=== PATIENT | male | born 1935 | race Caucasian/White ===

== ENCOUNTER 2018-06-22 12:49 | Emergency (ER) | payer OTHER ==
[2018-06-22 13:35] VITALS: BP 134/75; PULSE 71; TEMP 97.4; BMI 25.7
--- NOTE | 2018-06-22 13:44 | PDOC ---
History of Present Illness - General Chief Complaint: Wound Stated Complaint: DRAINING FLUID ON LEG S/P SURG Time Seen by Provider: 06/22/18 12:56 - History of Present Illness Initial Comments: 06/22/18 14:34 Chief complaint: Wound drainage History of present illness: Patient had CABG approximately 2 weeks ago, discharged from [facility] on Sunday, small amount of clear drainage continues from wounds on his leg and chest. Visiting nurse today was concerned about infection, encourage the patient to be seen in the emergency room. He has not and seen by his primary physician or his surgeon. Review of systems: Denies fever/chills, body aches, swelling, redness, warmth, or pain at the sites of the wounds. States that the drainage is clear fluid without discoloration or other suggestion of pus. Past medical history: PR, coronary artery disease, recent CABG, Social/family history reviewed and noncontributory Physical exam: Alert and oriented well-developed well-nourished no acute distress cheerful and cooperative Afebrile, vital signs normal Surgical wounds of his chest and left medial calf were inspected. Small amount of serosanguineous drainage was noted from each area. There was absolutely no erythema, warmth, swelling, or tenderness in the area of the wounds. There was some vesiculation around the suture lines and the weeping appeared to be coming from there. Impression: It is unlikely that this is an infection. The serosanguineous drainage and vesiculation is more consistent with an eczematous type reaction to the sutures or other chemical/antiseptics used during surgery. Plan: Wound cultures were taken. Patient was instructed that if signs of infection develop to return to the ER immediately, otherwise recheck by primary physician and surgeon, who can check culture results and prescribe antibiotics if they feel they are needed. We will ambulatory, in no pain or other distress upon discharge to follow-up as directed. Patient is in agreement to avoid antibiotics at this time. Past History - Past Medical History COPD: No - Suicide/Smoking/Psychosocial Hx Smoking History: Former smoker Have you smoked in the past 12 months: No Information on smoking cessation initiated: No Hx Alcohol Use: No Drug/Substance Use Hx: No *Physical Exam - Vital Signs Last Vital Signs Temp Pulse Resp BP Pulse Ox 97.4 F L 71 20 134/75 99 06/22/18 12:50 06/22/18 12:50 06/22/18 12:50 06/22/18 12:50 06/22/18 12:50 *DC/Admit/Observation/Transfer Diagnosis at time of Disposition: Wound drainage - Discharge Dispostion Disposition: HOME Condition at time of disposition: Stable Decision to Admit order: No - Referrals - Patient Instructions Printed Discharge Instructions: How to Care for a Surgical Wound Additional Instructions: Cultures were taken and results will be available in 12-24 hours It is unlikely that this is an infection. However, if other symptoms develop such as fever/chills, redness, warmth, or swelling around the wounds, this could be more evidence for infection and you should contact her doctor immediately or return to the emergency room. Wound care as discussed until then. If possible, see your surgeon and have him inspect the wound, because he is most experiened as to what to expect regarding surgical wounds after this type of surgery. - Post Discharge Activity
== END 2018-06-22 13:54 | disposition home or self-care (01) ==
LOC: FER 12:49
DX: T81.89XA Other complications of procedures, not elsewhere classified, initial encounter (principal); Y83.8 Other surgical procedures as the cause of abnormal reaction of the patient, or of later complication, without mention of misadventure at the time of the procedure; Y92.9 Unspecified place or not applicable; I10 Essential (primary) hypertension; I25.10 Atherosclerotic heart disease of native coronary artery without angina pectoris; Z87.891 Personal history of nicotine dependence; Z95.1 Presence of aortocoronary bypass graft
CPT/HCPCS: 87070; 87186; 87205; 99282-25

== ENCOUNTER 2018-07-28 10:19 | Emergency (ER) | payer OTHER | END 2018-07-28 14:06 | disposition home or self-care (01) | LOC: FER 10:19 ==

== ENCOUNTER 2018-08-06 13:53 | Inpatient (IN) | payer OTHER ==
--- NOTE | 2018-08-06 14:01 | PDOC ---
Rapid Medical Evaluation Chief Complaint: Redness To Affected Area Time Seen by Provider: 08/06/18 13:57 Medical Evaluation: Allergies Allergy/AdvReac Type Severity Reaction Status Date / Time ciprofloxacin [From Cipro] Allergy Verified 08/06/18 13:57 08/06/18 13:58 I have performed a brief in-person evaluation of this patient. The patient presents with a chief complaint of: sent for admission for LLE wound. Failed outpt Abx x2 Pertinent physical exam findings: LLe wound to medial aspect of mid lower leg I have ordered the following: labs, urine, ekg, cxr, CT The patient will proceed to the ED for further evaluation. Discharge Disposition - Diagnosis Cellulitis - Referrals - Patient Instructions - Post Discharge Activity
--- NOTE | 2018-08-06 14:26 | PDOC ---
History of Present Illness - General Chief Complaint: Redness To Affected Area Stated Complaint: SENT BY PCP\\LF LEG INFECTION Time Seen by Provider: 08/06/18 13:57 - History of Present Illness Initial Comments: 82yo M with PMH of HTN, HLD, Afib on Pradaxa and ASA presenting with LLE wound. Patient states he had a three-vessel cardiac bypass procedure on 06/11/18 and since that time the vessel graft area has not healed well. Patient had the vessel procedure on 06/11. He has noted serosanguinous drainage to the area. The wound improved but worsened and the patient was evaluated on 07/28/18 at [place] ED for worsening redness, swelling, and pain. Negative DVT study. Given Rocephin IV with improvement and keflex outpatient. Patient was re-evaluated by his physician on 08/02/18 who switched the antibiotics to amoxicillin as the patient was not improving. In consultation with his physician regarding no improvement today, patient was recommended for evaluation in the ED and admission for IV antibiotics for LLE infection with failed outpatient therapy. Patient reports fever of 102 on the night before he presented to [place] ED but not since. Endorsing chills and night sweats. No chest pain. PCP: Dr. Hyde Past History - Past Medical History Allergies/Adverse Reactions: Allergies Allergy/AdvReac Type Severity Reaction Status Date / Time ciprofloxacin [From Cipro] Allergy Verified 08/06/18 13:57 Home Medications: Ambulatory Orders Acetaminophen [Tylenol] 650 mg PO PRN PRN 07/28/18 Amiodarone HCl 400 mg PO BID 07/28/18 Aspirin [ASA -] 81 mg PO DAILY 07/28/18 Azelastine/Fluticasone [Dymista Nasal [place]] 23 gm NS PRN PRN 07/28/18 Cephalexin Monohydrate [Keflex] 500 mg PO Q6H #30 capsule 07/28/18 Dabigatran Etexilate Mesylate [Pradaxa -] 150 mg PO BID 07/28/18 Docusate Sodium 100 mg PO TID 07/28/18 Esomeprazole Magnesium 20 mg PO DAILY 07/28/18 Ezetimibe 10 mg PO DAILY 07/28/18 Finasteride 5 mg PO HS 07/28/18 Folic Acid 3 mg PO HS 07/28/18 Furosemide [Lasix] 20 mg PO DAILY 07/28/18 Rosuvastatin [Crestor -] 5 mg PO HS 07/28/18 Tamsulosin HCl [Flomax -] 0.4 mg PO BID 07/28/18 Cardiac Disorders: Yes (triple bypass) COPD: No HTN: Yes Other medical history: enlarged Prostate - Surgical History Cardiac Surgery: Yes (TRIPLE BYPASS) - Suicide/Smoking/Psychosocial Hx Smoking History: Former smoker Have you smoked in the past 12 months: No Information on smoking cessation initiated: No Hx Alcohol Use: No Drug/Substance Use Hx: No Review of Systems - Review of Systems Comments:: Constitutional: +fever, +chills HEENT: no throat pain, no dysphagia Cardiovascular: no chest pain, no palpitations Respiratory: no cough, no shortness of breath Gastrointestinal: no abdominal pain, no nausea Genitourinary: no dysuria, no frequency Musculoskeletal: no myalgia, no arthralgia Skin: +L. leg erythema, + L. leg edema Neurologic: no headache, +weakness *Physical Exam - Vital Signs Last Vital Signs Temp Pulse Resp BP Pulse Ox 97.5 F L 86 16 148/61 97 08/06/18 13:57 08/06/18 13:57 08/06/18 13:57 08/06/18 13:57 08/06/18 13:57 - Physical Exam Comments: General: Awake, alert, and fully oriented, in no acute distress Head: No signs of trauma Eyes: EOMI, sclera anicteric ENT: Moist mucus membranes Neck: Normal ROM, supple Lungs: Lungs clear, Normal breath sounds Cardio: Regular rhythm, S1 and S2 present Abdomen: Soft, nontender L. leg: area from calf to just below knee is erytematous and indurated, area of vessel graft on medial aspect of lower leg with mild serosanguinous drainage; R. leg: no acute abnormality; equal strength and sensation Extremities: Normal range of motion, Distal pulses present SKIN: Warm, Dry, normal turgor Neurologic: Cranial nerves II through XII grossly intact. Normal speech ED Treatment Course - LABORATORY CBC & Chemistry Diagram: 08/07/18 06:51 08/07/18 06:51 Medical Decision Making - Medical Decision Making 82yo M with PMH of HTN, HLD, Afib on Pradaxa and ASA presenting with LLE wound. Per message from Dr. Hyde: "Ongoing pain an dswelling of LLE with draining wound. Seen at [facility] on 07/27 --> Duplex negative for DVT. Has NOT responded to 2 separate po antibiotics and now needs inpatient admission for cellulitis. Please do all labs and CXR as well as CT of LLE and may need IV Rocephin. Labs, EKG, CXR 08/06/18 14:47 EKG: rate 68, QTc 504, atrial flutter, RBBB CBC WBC 10.8 K/mm3 (4.0-10.0) H 08/06/18 14:16 RBC 3.66 M/mm3 (4.00-5.60) L 08/06/18 14:16 Hgb 11.0 GM/dL (11.7-16.9) L 08/06/18 14:16 Hct 32.8 % (35.4-49) L 08/06/18 14:16 MCV 89.6 fl (80-96) 08/06/18 14:16 MCH 30.1 pg (25.7-33.7) 08/06/18 14:16 MCHC 33.6 g/dl (32.0-35.9) 08/06/18 14:16 RDW 15.4 % (11.9-15.9) 08/06/18 14:16 MPV 8.8 fl (7.5-11.1) 08/06/18 14:16 Absolute Neuts (auto) 8.2 K/mm3 (1.5-8.0) H 08/06/18 14:16 Neutrophils % 75.7 % (42.8-82.8) 08/06/18 14:16 Lymphocytes % 12.2 % (8-40) D 08/06/18 14:16 Monocytes % 6.6 % (3.8-10.2) 08/06/18 14:16 Eosinophils % 4.4 % (0-4.5) D 08/06/18 14:16 Basophils % 1.1 % (0-2.0) 08/06/18 14:16 Nucleated RBC % 0 % (0-0) 08/06/18 14:16 Mild leukocytosis WBC 10.8 CMP Sodium 140 mmol/L (136-145) 08/06/18 14:16 Potassium 4.5 mmol/L (3.5-5.1) 08/06/18 14:16 Chloride 106 mmol/L (98-107) 08/06/18 14:16 Carbon Dioxide 28 mmol/L (21-32) 08/06/18 14:16 Anion Gap 6 MMOL/L (8-16) L 08/06/18 14:16 BUN 16.1 mg/dL (7-18) 08/06/18 14:16 Creatinine 1.3 mg/dL (0.55-1.3) 08/06/18 14:16 Est GFR (CKD-EPI)AfAm 59.73 08/06/18 14:16 Est GFR (CKD-EPI)NonAf 51.53 08/06/18 14:16 Random Glucose 87 mg/dL (74-106) 08/06/18 14:16 Calcium 8.6 mg/dL (8.5-10.1) 08/06/18 14:16 Total Bilirubin 0.6 mg/dL (0.2-1) 08/06/18 14:16 AST 30 U/L (15-37) 08/06/18 14:16 ALT 21 U/L (13-61) 08/06/18 14:16 Alkaline Phosphatase 83 U/L (45-117) 08/06/18 14:16 Total Protein 7.5 g/dl (6.4-8.2) 08/06/18 14:16 Albumin 3.0 g/dl (3.4-5.0) L 08/06/18 14:16 Electrolytes WNL No transaminitis Normal Cr Vanc/Zosyn ordered 08/06/18 15:[address] Hyde who recommended 20mg Lasix. CT with IV contrast ordered for the left lower extremity 08/06/18 15:37 CXR: "A single view of the chest reveals a large heart, unfolded aorta, sternal sutures, normal tessa and clear lung gentile. The angles are sharp. The soft tissues are intact. There are some degenerative changes. Correlation recommended. " CT with evidence of abscess: "ADDENDUM ADDENDUM #1 Addendum: The previously described rim-enhancing ventral medial fluid collection measures approximately 15 x 3 x 1 cm. ORIGINAL REPORT * Left lower extremity CT (with contrast) Clinical information given: left lower extremity cellulitis and wound, evaluate for abscess Multiplanar imaging of the left lower leg was performed following the intravenous administration of nonionic contrast. No prior CT/MRI studies are available at this facility for direct comparison. Submitted exam coverage extends from the distal left femoral diametaphysis through the ankle/foot. An approximately 11 x 3 x 1 cm rim- enhancing ventral medial fluid collection is noted straddling the superficial fascia at the level of the middle third of the tibial diaphysis. Subcutaneous concentric subcutaneous edema is seen along the length of the visualized left lower extremity. No soft tissue air accumulation is noted. Hemostatic clips are seen within the soft tissues medially at the level of the upper and mid tibia. A small osteochondral defect is seen along the left talar dome medially. Calcified cartilage consistent with chondrocalcinosis is seen within the knee joints bilaterally - ? on a degenerative basis versus possible pyrophosphate arthropathy. Correlate clinically. Impression: A discrete rim-enhancing fluid collection suggestive of an abscess is seen along the ventral medial aspect of the left lower leg as discussed above." Updated Dr. Hyde who requested consult to [facility] Paged orthopedist 08/06/18 18:20 Patient signed out to Dr. Chaidez and night team *DC/Admit/Observation/Transfer Diagnosis at time of Disposition: Post-operative wound abscess Cellulitis Qualifiers: Site of cellulitis: extremity Site of cellulitis of extremity: lower extremity Laterality: left Qualified Code(s): L03.116 - Cellulitis of left lower limb - Discharge Dispostion Condition at time of disposition: Guarded Decision to Admit order: Yes - Referrals - Patient Instructions - Post Discharge Activity
[2018-08-06 14:45] LABS: BASO % 1.1 % (0-2.0); EOS % 4.4 % (0-4.5); HEMATOCRIT 32.8 % (35.4-49); LYMPH % 12.2 % (8-40); MCH 30.1 pg (25.7-33.7); MCHC 33.6 g/dl (32.0-35.9); MEAN CELL VOLUME 89.6 fl (80-96); MEAN PLT VOLUME 8.8 fl (7.5-11.1); MONO % 6.6 % (3.8-10.2); NEUT % 75.7 % (42.8-82.8); RBC 3.66 M/mm3 (4.00-5.60); RDW 15.4 % (11.9-15.9); WHITE BLOOD COUNT 10.8 K/mm3 (4.0-10.0)
[2018-08-06 15:17] LABS: URINE APPEARANCE CLEAR; URINE BILIRUBIN NEGATIVE (NEGATIVE); URINE COLOR YELLOW; URINE GLUCOSE (UA) NEGATIVE (NEGATIVE); URINE KETONE NEGATIVE (NEGATIVE); URINE LEUK ESTERASE NEGATIVE (NEGATIVE); URINE NITRITE NEGATIVE (NEGATIVE); URINE PROTEIN NEGATIVE (NEGATIVE); URINE UROBILINOGEN 0.2 mg/dL (0.2-1.0)
[2018-08-06 15:21] LABS: BILIRUBIN,TOTAL 0.6 mg/dL (0.2-1); BLOOD UREA NITROGEN 16.1 mg/dL (7-18); CALCIUM 8.6 mg/dL (8.5-10.1); CREATININE 1.3 mg/dL (0.55-1.3); POTASSIUM 4.5 mmol/L (3.5-5.1); TOT PROT 7.5 g/dl (6.4-8.2)
[2018-08-06] MEDS ORDERED: VANCOMYCIN 1,000 MG in DEXTROSE 5%-WATER - 250 ML IVPB ONE (15:27)
[2018-08-06] MEDS ORDERED: PIPERACILLIN/TAZOB 4.5 GM 4.5 GM in DEXTROSE 5%-WATER 100 ML IVPB ONE (15:27)
[2018-08-06] MEDS ORDERED: VANCOMYCIN 1 GRAM (PRE-DOCKED) 1,000 MG/250 ML BAG IVPB ONE (15:33)
[2018-08-06] MEDS ORDERED: PIPERACILLIN/TAZOB 3.375 GM 3.375 GM/50 ML BAG IVPB ONE ×2 (15:34→20:49)
[2018-08-06 15:38] LABS: ANISOCYTOSIS 0; MACROCYTOSIS 0; PLATELET ESTIMATE INCREASED
[2018-08-06 15:40] LABS: PLATELET COUNT 466 K/MM3 (134-434)
--- NOTE | 2018-08-06 17:00 | PDOC ---
Documentation entered by Elvia Wade SCRIBE, acting as scribe for Jeevan Puentes MD. Jeevan Puentes MD: This documentation has been prepared by the scribe, Elvia Wade SCRIBE, under my direction and personally reviewed by me in its entirety. I confirm that the documentation accurately reflects all work, treatment, procedures, and medical decision making performed by me. Attending Attestation - Resident Resident Name: Isabel Amezcua - ED Attending Attestation I have performed the following: I have examined & evaluated the patient, The case was reviewed & discussed with the resident, I agree w/resident's findings & plan, Exceptions are as noted - HPI HPI: 08/06/18 15:15 The patient is an 82-year-old male, with a past medical history of cardiac bypass (on 06/11/18) with nonhealing vessel graft area, who was sent to the ED by Dr. Hyde for a LLE wound with associated drainage and LLE swelling/ pain. Patient was seen in [place] ER on Friday 07/28 and had a duplex study performed that was negative for DVT in the LLE. He was prescribed a dose of ceftriaxone with no improvement in his symptoms. He was placed on outpatient Keflex with no improvement, so Dr. Hyde placed him on a course of amoxicillin. Patient has been on amoxicillin for a few days and his symptoms have not improved, so Dr. Hyde sent the patient in for admission for IV abx and CT LLE with IV contrast to r/o deep infection. Pt reports fever to 102 the day he presented to [facility] but no fevers since. Otherwsie, denies recent headache, focal weakness/numbness, CP, SOB, abd pain, N/V/D, dizziness. Allergies: Ciprofloxacin PCP: Dr. Hyde - Physicial Exam PE: 08/06/18 17:02 agree with resident exam - Medical Decision Making 08/06/18 17:02 82yo M presents to the ED with cellulitis that has failed outpt abx Vitals wnl Exam with cellulitic tender L calf with wound LLE WWP otherwise, NVI with pulses Plan for labs, broad spectrum abx, CT as per Dr. Post, and admission
[2018-08-06] MEDS ORDERED: FUROSEMIDE 100 MG/10 ML INJECTABLE VIAL IVPB ONE (19:15)
--- NOTE | 2018-08-06 19:59 | HP ---
Admitting History and Physical - Primary Care Physician PCP: Seth Hyde - Admission Chief Complaint: pain swelling of Lt Leg - Smoking History Smoking history: Former smoker Have you smoked in the past 12 months: No - Alcohol/Substance Use Hx Alcohol Use: No Home Medications - Allergies Allergies/Adverse Reactions: Allergies Allergy/AdvReac Type Severity Reaction Status Date / Time ciprofloxacin [From Cipro] Allergy Verified 08/06/18 13:57 - Home Medications Home Medications: Ambulatory Orders Acetaminophen [Tylenol] 650 mg PO PRN PRN 07/28/18 Amiodarone HCl 400 mg PO BID 07/28/18 Aspirin [ASA -] 81 mg PO DAILY 07/28/18 Azelastine/Fluticasone [Dymista Nasal [place]] 23 gm NS PRN PRN 07/28/18 Cephalexin Monohydrate [Keflex] 500 mg PO Q6H #30 capsule 07/28/18 Dabigatran Etexilate Mesylate [Pradaxa -] 150 mg PO BID 07/28/18 Docusate Sodium 100 mg PO TID 07/28/18 Esomeprazole Magnesium 20 mg PO DAILY 07/28/18 Ezetimibe 10 mg PO DAILY 07/28/18 Finasteride 5 mg PO HS 07/28/18 Folic Acid 3 mg PO HS 07/28/18 Furosemide [Lasix] 20 mg PO DAILY 07/28/18 Rosuvastatin [Crestor -] 5 mg PO HS 07/28/18 Tamsulosin HCl [Flomax -] 0.4 mg PO BID 07/28/18 Physical Examination Vital Signs: Vital Signs Temperature 97.5 F L 08/06/18 13:57 Pulse Rate 72 08/06/18 16:00 Respiratory Rate 20 08/06/18 16:00 Blood Pressure 136/84 08/06/18 16:00 O2 Sat by Pulse Oximetry (%) 98 08/06/18 16:00 Labs: CBC, BMP 08/06/18 14:16 08/06/18 14:16
[2018-08-06] MEDS ORDERED: HEPARIN NA (PORCINE) 5,000 UNITS/ML 1ML VIAL IVPUSH PRN ×2 (20:06)
[2018-08-06] MEDS ORDERED: FOLIC ACID 1 MG TABLET (FP) PO ONE (20:14)
[2018-08-06] MEDS: PIPERACILLIN/TAZOB 3.375 GM 3.375 GM in DEXTROSE 5%-WATER - 50 ML IVPB SCH (20:30)
[2018-08-06] MEDS ORDERED: FUROSEMIDE 40 MG/4 ML INJECTABLE VIAL ONE (20:49)
[2018-08-06] MEDS ORDERED: FOLIC ACID 1 MG TABLET (FP) ONE (20:52)
[2018-08-06] MEDS ORDERED: TAMSULOSIN HCL 0.4 MG CAP ONE (22:15)
[2018-08-06] MEDS: TAMSULOSIN HCL 0.4 MG CAP PO SCH (22:21)
[2018-08-07] MEDS: HEPARIN SOD,PORK IN 0.45% NACL 25,000 UNITS/500 ML INFUS.BAG IVPB SCH (02:17)
[2018-08-07] MEDS ORDERED: DEXTROSE 5%-WATER - 50 ML IVPB ONE ×2 (07:35→17:15)
[2018-08-07] MEDS ORDERED: PIPERACILLIN/TAZOBACTAM 3.375 GM VIAL IVPB ONE ×2 (07:35→17:15)
[2018-08-07] MEDS: ACETAMINOPHEN 325 MG TABLET (FP) PO PRN ×2 (07:40→17:19)
[2018-08-07] MEDS: PIPERACILLIN/TAZOB 3.375 GM 3.375 GM in DEXTROSE 5%-WATER - 50 ML IVPB SCH ×3 (07:54→17:18)
[2018-08-07 08:20] LABS: HEMATOCRIT 31.3 % (35.4-49); HEMOGLOBIN 10.5 GM/dL (11.7-16.9); MCH 29.7 pg (25.7-33.7); MCHC 33.4 g/dl (32.0-35.9); MEAN CELL VOLUME 89.2 fl (80-96); MEAN PLT VOLUME 7.8 fl (7.5-11.1); PLATELET COUNT 423 K/MM3 (134-434); RBC 3.51 M/mm3 (4.00-5.60); RDW 14.5 % (11.9-15.9); WHITE BLOOD COUNT 11.1 K/mm3 (4.0-10.0)
--- NOTE | 2018-08-07 08:52 | EKG ---
Test Reason : Blood Pressure : / mmHG Vent. Rate : 068 BPM Atrial Rate : 242 BPM P-R Int : 000 ms QRS Dur : 144 ms QT Int : 474 ms P-R-T Axes : 060 063 033 degrees QTc Int : 504 ms POOR DATA QUALITY, INTERPRETATION MAY BE ADVERSELY AFFECTED ATRIAL FLUTTER WITH VARIABLE A-V BLOCK RIGHT BUNDLE BRANCH BLOCK ABNORMAL ECG NO PREVIOUS ECGS AVAILABLE Confirmed by RILEY PADGETT, KAILEY ([id number]) on 08/07/2018 8:51:41 AM Referred By: Confirmed By:KAILEY LIN MD
[2018-08-07 09:24] LABS: BLOOD UREA NITROGEN 13.8 mg/dL (7-18); CALCIUM 8.7 mg/dL (8.5-10.1); CREATININE 1.4 mg/dL (0.55-1.3); POTASSIUM 3.5 mmol/L (3.5-5.1)
[2018-08-07] MEDS: VALSARTAN 80 MG TABLET (UD) PO SCH (09:53)
[2018-08-07] MEDS: FUROSEMIDE 40 MG/4 ML INJECTABLE VIAL IVPUSH SCH (09:59)
[2018-08-07] MEDS: PANTOPRAZOLE 40 MG TABLET (FP) PO SCH (09:59)
[2018-08-07] MEDS ORDERED: TAMSULOSIN HCL 0.4 MG CAP PO STA (10:27)
--- NOTE | 2018-08-07 10:45 | HP ---
Admitting History and Physical - Primary Care Physician PCP: Seth Hyde - Admission Chief Complaint: pain & swelling on the Lt lower leg History of Present Illness: 82 YO M with Hx of stable ASHD & ATflutter (who underwent CABG in mid May this year) whose surgery was complicated by post op leg edema and draining from the incision of the distal LLE where the vein graft was harvested. The wound continued to drain serous fluid and was cultured a week later and grew E. Fecalis; he was then seen by ID who advised topical TX. as he was not clinically ill. The drainage eventually stopped, and he became more active in the month of June. However, on 07/27/18, he developed abrupt onset of pain on the Lt calf, sweats, fever and the drainage resumed from the same spot. He presented to the ER and was pancultured then received IV Rocephin with some relief. His VS were stable and he was released on PO Keflex, which did not result in any improvement. The cultures were negative as was the duplex scan. He was seen by me on 08/02/18, his VS were stable and was afebrile; he opted to try a different Ab, to see if it might be more effective; Plain Xray of the LLE was negative as was the CKL. the ESR was 88; He was seen in f/u on 08/06/18; there was little change in the condition of the leg. He still had some malaise and sweats. History Source: Patient, Medical Record Limitations to Obtaining History: No Limitations - Past Medical History ALTERATIONS EXPERT: Yes: Migraine Cardiovascular: Yes: CAD, HTN, Hyperlipdemia, [place] (by enzymes only pre-OP), Other (atril flutter) Gastrointestinal: Yes: GERD, Other (colon polyps) Renal/: Yes: BPH Heme/Onc: Yes: Hypercoaguable State Musculoskeletal: Yes: Chronic low back pain Dermatology: Yes: Psoriasis - Past Surgical History Past Surgical History: Yes: CABG, Colonoscopy, TURP Additional Past Surgical History: repair of Lt achilles tendon tear - Advance Directives Advance Directives: Yes: Health Care Proxy - Smoking History Smoking history: Former smoker Have you smoked in the past 12 months: No If you are a former smoker, when did you quit?: about 15 years ago - Alcohol/Substance Use Hx Alcohol Use: No History of Substance Use: reports: None - Social History Usual Living Arrangement: Yes: With Spouse ADL: Independent 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 History of Recent Travel: Yes ([place]) Home Medications - Allergies Allergies/Adverse Reactions: Allergies Allergy/AdvReac Type Severity Reaction Status Date / Time ciprofloxacin [From Cipro] Allergy Verified 08/06/18 13:57 - Home Medications Home Medications: Ambulatory Orders Acetaminophen [Tylenol] 650 mg PO PRN PRN 07/28/18 Amiodarone HCl 400 mg PO BID 07/28/18 Aspirin [ASA -] 81 mg PO DAILY 07/28/18 Azelastine/Fluticasone [Dymista Nasal [place]] 23 gm NS PRN PRN 07/28/18 Cephalexin Monohydrate [Keflex] 500 mg PO Q6H #30 capsule 07/28/18 Dabigatran Etexilate Mesylate [Pradaxa -] 150 mg PO BID 07/28/18 Docusate Sodium 100 mg PO TID 07/28/18 Esomeprazole Magnesium 20 mg PO DAILY 07/28/18 Ezetimibe 10 mg PO DAILY 07/28/18 Finasteride 5 mg PO HS 07/28/18 Folic Acid 3 mg PO HS 07/28/18 Furosemide [Lasix] 20 mg PO DAILY 07/28/18 Rosuvastatin [Crestor -] 5 mg PO HS 07/28/18 Tamsulosin HCl [Flomax -] 0.4 mg PO BID 07/28/18 Family Disease History - Family Disease History Family Disease History: Heart Disease: Father, CA: Mother (colon) Review of Systems - Review of Systems Constitutional: reports: Chills, Diaphoresis, Lethargy Eyes: reports: No Symptoms HENT: reports: No Symptoms Neck: reports: No Symptoms Cardiovascular: reports: Palpitations Respiratory: reports: No Symptoms Gastrointestinal: reports: No Symptoms Genitourinary: reports: Frequency Musculoskeletal: reports: Extremity Pain Integumentary: reports: Change in Color (LLE) Neurological: reports: No Symptoms Endocrine: reports: No Symptoms Hematology/Lymphatic: reports: No Symptoms Psychiatric: reports: No Symptoms Physical Examination Vital Signs: Vital Signs Temperature 98.0 F 08/07/18 09:07 Pulse Rate 89 08/07/18 09:07 Respiratory Rate 18 08/07/18 09:07 Blood Pressure 120/69 08/07/18 09:07 O2 Sat by Pulse Oximetry (%) 96 08/06/18 22:24 skin--hyperemic LLE; with draining focus head--NC eyes--eomi; anicteric oral--no lesions appreciated neck--no masses, nodes, bruits heart--Irreg; rate NL lungs--grossly clear abd--benign ext--trace edema of the RLE; no ischemic changes hyperemeic exfoliating skin of the LLE; swollen & tender neuro--alert; coherent non ill appearing; no ghross focal deficits CBCD WBC 11.1 K/mm3 (4.0-10.0) H 08/07/18 06:51 RBC 3.51 M/mm3 (4.00-5.60) L 08/07/18 06:51 Hgb 10.5 GM/dL (11.7-16.9) L 08/07/18 06:51 Hct 31.3 % (35.4-49) L 08/07/18 06:51 MCV 89.2 fl (80-96) 08/07/18 06:51 MCHC 33.4 g/dl (32.0-35.9) 08/07/18 06:51 RDW 14.5 % (11.9-15.9) 08/07/18 06:51 Plt Count 423 K/MM3 (134-434) 08/07/18 06:51 MPV 7.8 fl (7.5-11.1) D 08/07/18 06:51 CMP Sodium 142 mmol/L (136-145) 08/07/18 06:51 Potassium 3.5 mmol/L (3.5-5.1) 08/07/18 06:51 Chloride 105 mmol/L (98-107) 08/07/18 06:51 Carbon Dioxide 28 mmol/L (21-32) 08/07/18 06:51 Anion Gap 8 MMOL/L (8-16) 08/07/18 06:51 BUN 13.8 mg/dL (7-18) 08/07/18 06:51 Creatinine 1.4 mg/dL (0.55-1.3) H 08/07/18 06:51 Random Glucose 87 mg/dL (74-106) 08/07/18 06:51 Calcium 8.7 mg/dL (8.5-10.1) 08/07/18 06:51 Total Bilirubin 0.6 mg/dL (0.2-1) 08/06/18 14:16 AST 30 U/L (15-37) 08/06/18 14:16 ALT 21 U/L (13-61) 08/06/18 14:16 Alkaline Phosphatase 83 U/L (45-117) 08/06/18 14:16 Total Protein 7.5 g/dl (6.4-8.2) 08/06/18 14:16 Albumin 3.0 g/dl (3.4-5.0) L 08/06/18 14:16 CARDIAC ENZYMES Creatine Kinase 78 U/L (26-308) 08/07/18 06:51 Labs: CBC, BMP 08/07/18 06:51 08/07/18 06:51 Imaging - Results Chest X-ray: Report Reviewed Cat Scan: Report Reviewed EKG: Report Reviewed Problem List - Problems (1) Post-operative wound abscess Assessment/Plan: of the LLE; seen by CT scan; has not responded with 2 separate courses of oral Abs as OP: PLAN surg eval; IV abs Code(s): T81.49XA - INFECTION FOLLOWING A PROCEDURE, OTHER SURGICAL SITE, INIT (2) S/P CABG x 3 Assessment/Plan: in the month of May; complicated by LLE non healing wound; and post OP atrial flutter Code(s): Z95.1 - PRESENCE OF AORTOCORONARY BYPASS GRAFT (3) Hypertensive heart disease Assessment/Plan: requiring BP control; and with underlying CAD; s/p post CABG Code(s): I11.9 - HYPERTENSIVE HEART DISEASE WITHOUT HEART FAILURE Qualifiers: Heart failure presence: without heart failure Qualified Code(s): I11.9 - Hypertensive heart disease without heart failure (4) Hypercoagulable state Assessment/Plan: heterzygous MTHF def; 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 Code(s): I48.92 - UNSPECIFIED ATRIAL FLUTTER (6) History of heart attack Assessment/Plan: by enzymes only; NSTEMI; which prompted admission pre-CABG Code(s): I25.2 - OLD MYOCARDIAL INFARCTION (7) Lipidemia Assessment/Plan: on statin Code(s): E78.5 - HYPERLIPIDEMIA, UNSPECIFIED Qualifiers: Hyperlipidemia type: unspecified Qualified Code(s): E78.5 - Hyperlipidemia , unspecified (8) BPH associated with nocturia Assessment/Plan: cont Flomax Code(s): N40.1 - BENIGN PROSTATIC HYPERPLASIA WITH LOWER URINARY TRACT SYMP; R35.1 - NOCTURIA (9) Migraine Assessment/Plan: stable Code(s): G43.909 - MIGRAINE, UNSP, NOT INTRACTABLE, WITHOUT STATUS MIGRAINOSUS Qualifiers: Migraine type: unspecified Intractability: not intractable (10) Long-term (current) use of anticoagulants, INR goal 2.0-3.0 Assessment/Plan: on Pradaxa as OP; changed to IV heparin Code(s): Z79.01 - CHIEF CUSTOMER OFFICER (CURRENT) USE OF ANTICOAGULANTS Assessment/Plan 82 YO Cardiac patient who presents with LLE abscess unresponsive to multiple Ab courses as OP now requiring surg eval/intervention. Managment of Co_morb as indicated above. ~~~~~~~~~~~~~~~~ Dr Post
[2018-08-07] MEDS ORDERED: DOCUSATE SODIUM 100 MG CAPSULE (FP) PO PRN (11:05)
[2018-08-07] MEDS: AMIODARONE HCL 200 MG TABLET (FP) PO SCH (11:05)
--- NOTE | 2018-08-07 11:40 | CONSULT ---
- Consultation REQUESTING PROVIDER: CONSULT REQUEST: We have been asked to surgically evaluate this patient for ( Left leg abscess). PCP:Seth Hyde HISTORY OF PRESENT ILLNESS: 82 y/o M w/ PMHx ASHD, aflutter, CAD s/p CABG ([facility] -Dr Phipps, 06/11/2018), h/o DVT on Pradaxa complicated by post op leg edema and draining from LLE vein graft harvest site now here with worsening pain and erythema. Per pt and EMR, wound never completely closed after surgery. Pt was seen in ER at [facility] on 06/22 after being sent in by [facility] for concern for infection. Wound cultures were taken which grew E. fecalis, abx were not prescribed at that time as the wound was felt to not be infected, pt was advised local wound care with Bacitracin. Pt reports drainage stopped and he did well throughout June. However, in the beginning of July, he noted a new blister on his medial calf which opened and began draining. Pt was seen in ER again on 07/28 after developing erythema, edema and pain. Dr Hernández was consulted for evaluation, pt was pancultured and received a dose of Rocephin 2g and Cephalexin was continued for 1 week. Pt reports no improvement on abx. Cultures from ER visit were negative. Pt was seen by PCP on 08/02 at which time abx were changed to Amoxicillin and plain xray was done and wnl. Pt was referred to ER for further evaluation and trtmt. Pt reports fever to 102 on 07/28, no fevers since. Denies CP, SOB, abd pain, N/ V/D, dizziness. At baseline pt lives home with who he states is disabled. Pt reports being is "good shape", played tennis frequently prior to MT. Currently able to ambulate unlimited without assistance. PMHx: as above PSHx: as above Home Medications Medication Instructions Recorded Acetaminophen [Tylenol] 650 mg PO PRN PRN 07/28/18 Amiodarone HCl 400 mg PO BID 07/28/18 Aspirin [ASA -] 81 mg PO DAILY 07/28/18 Azelastine/Fluticasone [Dymista 23 gm NS PRN PRN 07/28/18 Nasal [place]] Cephalexin Monohydrate [Keflex] 500 mg PO Q6H #30 capsule 07/28/18 Dabigatran Etexilate Mesylate 150 mg PO BID 07/28/18 [Pradaxa -] Docusate Sodium 100 mg PO TID 07/28/18 Esomeprazole Magnesium 20 mg PO DAILY 07/28/18 Ezetimibe 10 mg PO DAILY 07/28/18 Finasteride 5 mg PO HS 07/28/18 Folic Acid 3 mg PO HS 07/28/18 Furosemide [Lasix] 20 mg PO DAILY 07/28/18 Rosuvastatin [Crestor -] 5 mg PO HS 07/28/18 Tamsulosin HCl [Flomax -] 0.4 mg PO BID 07/28/18 Allergies Allergy/AdvReac Type Severity Reaction Status Date / Time ciprofloxacin [From Cipro] Allergy Verified 08/06/18 13:57 REVIEW OF SYSTEMS: CONSTITUTIONAL: Absent: fever, chills CARDIOVASCULAR: Absent: chest pain, syncope RESPIRATORY: Absent: cough, shortness of breath GASTROINTESTINAL: Absent: abdominal pain PHYSICAL EXAM: GENERAL: Awake, alert, and fully oriented, in no acute distress. HEAD: Normal with no signs of trauma. LOWER EXTREMITIES: RLE with no edema, erythema or wounds. LLE with 2+ pitting edema to mid calf. + erythema from ankle to tibial tuberosity. Approx 2x2cm open ulcer at medial distal calf. Wound bed with fibrinous exudate and scant serous drainage. No foul odor. Unable to express any significant fluid from ulcer. Unable to appreciate any areas of fluctance. +TTP. No other open ulcers. Vasc: LLE 2+ dp/ Vital Signs Temperature 98.0 F 08/07/18 09:07 Pulse Rate 89 08/07/18 09:07 Respiratory Rate 18 08/07/18 09:07 Blood Pressure 120/69 08/07/18 09:07 O2 Sat by Pulse Oximetry (%) 96 08/06/18 22:24 Lab Results WBC 11.1 K/mm3 (4.0-10.0) H 08/07/18 06:51 RBC 3.51 M/mm3 (4.00-5.60) L 08/07/18 06:51 Hgb 10.5 GM/dL (11.7-16.9) L 08/07/18 06:51 Hct 31.3 % (35.4-49) L 08/07/18 06:51 MCV 89.2 fl (80-96) 08/07/18 06:51 MCHC 33.4 g/dl (32.0-35.9) 08/07/18 06:51 RDW 14.5 % (11.9-15.9) 08/07/18 06:51 Plt Count 423 K/MM3 (134-434) 08/07/18 06:51 Sodium 142 mmol/L (136-145) 08/07/18 06:51 Potassium 3.5 mmol/L (3.5-5.1) 08/07/18 06:51 Chloride 105 mmol/L (98-107) 08/07/18 06:51 Carbon Dioxide 28 mmol/L (21-32) 08/07/18 06:51 Anion Gap 8 MMOL/L (8-16) 08/07/18 06:51 BUN 13.8 mg/dL (7-18) 08/07/18 06:51 Creatinine 1.4 mg/dL (0.55-1.3) H 08/07/18 06:51 Random Glucose 87 mg/dL (74-106) 08/07/18 06:51 Calcium 8.7 mg/dL (8.5-10.1) 08/07/18 06:51 CT lower ext w/ contrast (08/06/18): The previously described rim-enhancing ventral medial fluid collection measures approximately [id number]. A/P: 82 y/o M w/ PMHx ASHD, aflutter, CAD s/p CABG ([facility]-Dr Phipps, 2018), h/o DVT on Pradaxa complicated by post op leg edema and draining from LLE vein graft harvest site now here with worsening pain and erythema. LLE cellulitis with open draining wound and abscess. Afebrile, leukocytosis 11k -Plan for OR 08/08 for I&D -Continue wound care with dry 4x4s and kerlix -ABX per ID -NPO after midnight -Clearance for OR -LABS (cbc, chem, coags, t&s) -f/u cultures -Remainder of care per primary care physician d/w attending Dr Camara
[2018-08-07] MEDS ORDERED: VANCOMYCIN 1,000 MG in DEXTROSE 5%-WATER - 250 ML IVPB SCH (12:45)
--- NOTE | 2018-08-07 12:50 | PN ---
Progress Note (short form) - Note Progress Note: ID CONSULT DICTATED CELLULITIS L LE ? INFECTED SEROMA/HEMATOMA S/P VEIN HARVEST L LE AWAIT C/S EMPIRIC VANCOMYCIN / ZOSYN
--- NOTE | 2018-08-07 13:13 | CONS ---
DATE OF CONSULTATION: DATE OF DICTATION: 08/07/2018 HISTORY OF PRESENT ILLNESS: The patient is an 82-year-old male who is evaluated for cellulitis of the left lower extremity. He had undergone triple bypass at [facility] on June 11, 2018. Postoperatively, he had developed a blister at the left vein harvest site. Post hospital discharge, he noted serous drainage from the lower aspect of the incision. He was seen in [facility] Emergency Room on July 28, 2018, and felt not to have a wound infection or cellulitis. Cultures were obtained, but no antibiotic was given. Cultures of the wound grew enterococcus. His leg remained swollen but without purulent drainage or erythema. No fever or chills. He was seen in the office and was followed expectantly. There was no need for antibiotic therapy at that time. He now is admitted with worsening erythema, warmth, and swelling of the left lower extremity. He had seen his primary care physician on August 02 and was prescribed amoxicillin. A Doppler exam was performed on admission and was negative for DVT. He denies any purulent wound drainage. No high grade fever or shaking chills. PAST MEDICAL HISTORY: Positive for coronary artery disease, hypertension, hyperlipidemia, atrial fibrillation. PAST SURGICAL HISTORY: As above. ALLERGIES: To CIPROFLOXACIN. MEDICATIONS: Include Tylenol, amiodarone, Colace, folic acid, Lasix, Protonix, Crestor, Flomax, vancomycin, Zosyn. SOCIAL HISTORY: He resides in the community. He is a former smoker and nondrinker. SYSTEMS REVIEW: Neurologic: No loss of consciousness, seizure activity, or focal weakness. Cardiac: Negative for chest pain or palpitations. Respiratory: Negative for cough or sputum production. Gastrointestinal: Negative for vomiting or diarrhea. Genitourinary: Negative for urinary tract infection. LABORATORY DATA: White count 11.1, hematocrit 31.3, platelets 423. Creatinine 1.4. Urinalysis negative. Chest x-ray negative. Cultures pending. PHYSICAL EXAMINATION: General: He is awake and alert. He is not acutely toxic-appearing. Vital signs: Temperature 98.0, blood pressure 120/69, pulse 89 and regular, respirations 18 per minute. HEENT: Sclerae anicteric. Heart: Heart sounds S1, S2. Sternal wound appears to be healing well without evidence of infection. Extremities: Negative for edema. Examination at the left lower extremity, there is a superficial surgical wound approximately 1 cm in diameter in the left pretibial area. There is no purulence. There is confluent erythema and warmth involving the left lower extremity from below the knee to the ankle. No crepitus or fluctuance. No lymphangitic streaking. IMPRESSION: 1. Cellulitis, left lower extremity. 2. Rule out sepsis secondary to skin infection. 3. Status post saphenous vein harvest for coronary artery bypass graft. 4. Fluid collection on left lower extremity cellulitis. Rule out infected hematoma versus abscess. Await cultures, surgical evaluation for possible aspiration of the left lower extremity fluid collection, empiric antibiotic coverage with vancomycin and Zosyn. Will follow. Thank you for the kind referral. AHSAN YOUNG M.D. [id number]
--- NOTE | 2018-08-07 13:50 | PN ---
Progress Note (short form) - Note Progress Note: Pt seen and examined. He is an 82 year old male patient who had a CABG open heart surgery 7 weeks ago at [facility]. They harvested a vein to use as a graft from his left posteromedial calf. About 3 days ago it started to swell, became for tender, and more erythematous. He is able to ambulate. He denies any recent history of trauma. He is on antibiotics. PE Left calf with mild swelling + erythema around the posteromedial vein harvest site L knee and L ankle are fine CT SCan + 11cm x 3cm x 1cm well defined abscess in the soft tissue of the mid lower leg, and surrounding soft tissue edema Imp The patient has no orthopedic issues + cellulitis and deep abscess in the surgical area of the vein harvest site, from surgery 7 weeks ago This is a post operative vascular complication Rec Vascular consult - DR Camara Or transfer the patient to [facility] for care from his cardiac surgeons
[2018-08-07] MEDS: VANCOMYCIN 1 GRAM (PRE-DOCKED) 1,000 MG/250 ML BAG IVPB SCH (14:15)
--- NOTE | 2018-08-07 15:57 | CON.CARD ---
Consult Consult Specialty:: Cardiology Reason for Consultation:: Leg abcess - History of Present Illness Chief Complaint: Leg abscess History of Present Illness: This is an 82 year old male with a PMH of HTN, HLD, BPM, Atrial Flutter, hypercoagulable state (MTHFR mutation), and remote DVT/PE (was on Pradaxa). He presented 06/05/18 to [facility] with CP and was found to have a NSTEMI. Echo showed normal LVfunciton. Cath 06/06/18 showed 3vdz. He received a CABG on 06/11/18. Post op he expirenced leg edema and draining from the incision of the distal LLE where the vein graft was harvested. He presents now with more swelling and erythema at the vein harvest site. He is being evaluated and may require surgical intervention. EKG Atrial Flutter at 68 BPM with a RBBB There are no cardiac contraindications to surgical intervention. 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: Migraine Cardio/Vascular: Yes: CAD, HTN, Hyperlipdemia, [place] (by enzymes only pre-OP), Other (atril flutter) Gastrointestinal: Yes: GERD, Other (colon polyps) Renal/: Yes: BPH Musculoskeletal: Yes: Chronic low back pain Dermatology: Yes: Psoriasis - Past Surgical History Past Surgical History: Yes: CABG, Colonoscopy, TURP - Alcohol/Substance Use Hx Alcohol Use: No History of Substance Use: reports: None - Smoking History Smoking history: Former smoker Have you smoked in the past 12 months: No If you are a former smoker, when did you quit?: about 15 years ago - Social History ADL: Independent 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 History of Recent Travel: Yes ([place]) Home Medications - Allergies Allergies/Adverse Reactions: Allergies Allergy/AdvReac Type Severity Reaction Status Date / Time ciprofloxacin [From Cipro] Allergy Verified 08/06/18 13:57 - Home Medications Home Medications: Ambulatory Orders Acetaminophen [Tylenol] 650 mg PO PRN PRN 07/28/18 Amiodarone HCl 400 mg PO BID 07/28/18 Aspirin [ASA -] 81 mg PO DAILY 07/28/18 Azelastine/Fluticasone [Dymista Nasal [place]] 23 gm NS PRN PRN 07/28/18 Cephalexin Monohydrate [Keflex] 500 mg PO Q6H #30 capsule 07/28/18 Dabigatran Etexilate Mesylate [Pradaxa -] 150 mg PO BID 07/28/18 Docusate Sodium 100 mg PO TID 07/28/18 Esomeprazole Magnesium 20 mg PO DAILY 07/28/18 Ezetimibe 10 mg PO DAILY 07/28/18 Finasteride 5 mg PO HS 07/28/18 Folic Acid 3 mg PO HS 07/28/18 Furosemide [Lasix] 20 mg PO DAILY 07/28/18 Rosuvastatin [Crestor -] 5 mg PO HS 07/28/18 Tamsulosin HCl [Flomax -] 0.4 mg PO BID 07/28/18 Family Disease History - Family Disease History Family Disease History: Heart Disease: Father, CA: Mother (colon) Review of Systems Unable to obtain ROS, reason: As per HPI Vital Signs: Vital Signs Temperature 98.3 F 08/07/18 14:00 Pulse Rate 83 08/07/18 14:00 Respiratory Rate 18 08/07/18 14:00 Blood Pressure 114/69 08/07/18 14:00 O2 Sat by Pulse Oximetry (%) 96 08/07/18 09:00 Constitutional: Yes: Well Nourished Eyes: Yes: WNL HENT: Yes: WNL Neck: Yes: WNL Respiratory: Yes: CTA Bilaterally Gastrointestinal: Yes: Soft Cardiovascular: Yes: Pulse Irregular (NL S1 S2, no MRHG) JVD: No Extremities: Yes: Other (LLE dressings are dry and intact) Neurological: Yes: Alert, Oriented - Other Data Labs, Other Data: CBC, BMP 08/07/18 06:51 08/07/18 06:51 Assessment/Plan 82 year old male with a PMH of HTN, HLD, BPM, Atrial Flutter, hypercoagulable state (MTHFR mutation), and remote DVT/PE (was on Pradaxa). He presented to [facility] with CP and was found to have a NSTEMI. Echo showed normal LVfunciton. Cath 06/06/18 showed 3vdz. He received a CABG on 06/11/18. Post op he expirenced leg edema and draining from the incision of the distal LLE where the vein graft was harvested. He presents now with more swelling and erythema at the vein harvest site. He is being evaluated and may require surgical intervention. EKG Atrial Flutter at 68 BPM with a RBBB There are no cardiac contraindications to surgical intervention. S/P CABG Continue Amiodarone 200 mg PO daily Crestor 5 mg PO daily Valsartan 80 mg PO daily Will follow with you.
--- NOTE | 2018-08-07 16:19 | PN ---
Progress Note (short form) - Note Progress Note: Addendum: Cardiology note read. Spoke with Dr Melvin Wesley (Pt's District Ranger), and discussed case & findings, as well as the issue of the atrial flutter. He stated that as long as his HR & BP are in good range; there should be no reason why he cannot undergo surgery; as long as the matter with a/c are properly managed. ~~~~~~~~~~ dr Hyde Problem List - Problems (1) Post-operative wound abscess Code(s): T81.49XA - INFECTION FOLLOWING A PROCEDURE, OTHER SURGICAL SITE, INIT (2) S/P CABG x 3 Code(s): Z95.1 - PRESENCE OF AORTOCORONARY BYPASS GRAFT (3) Hypertensive heart disease Code(s): I11.9 - HYPERTENSIVE HEART DISEASE WITHOUT HEART FAILURE Qualifiers: Heart failure presence: without heart failure Qualified Code(s): I11.9 - Hypertensive heart disease without heart failure (4) Hypercoagulable state Code(s): D68.59 - OTHER PRIMARY THROMBOPHILIA (5) Atrial flutter with controlled response Code(s): I48.92 - UNSPECIFIED ATRIAL FLUTTER (6) History of heart attack Code(s): I25.2 - OLD MYOCARDIAL INFARCTION (7) Lipidemia Code(s): E78.5 - HYPERLIPIDEMIA, UNSPECIFIED Qualifiers: Hyperlipidemia type: unspecified Qualified Code(s): E78.5 - Hyperlipidemia , unspecified (8) BPH associated with nocturia Code(s): N40.1 - BENIGN PROSTATIC HYPERPLASIA WITH LOWER URINARY TRACT SYMP; R35.1 - NOCTURIA (9) Migraine Code(s): G43.909 - MIGRAINE, UNSP, NOT INTRACTABLE, WITHOUT STATUS MIGRAINOSUS Qualifiers: Migraine type: unspecified Intractability: not intractable (10) Long-term (current) use of anticoagulants, INR goal 2.0-3.0 Code(s): Z79.01 - ASSISTED (CURRENT) USE OF ANTICOAGULANTS
[2018-08-07] MEDS ORDERED: ROSUVASTATIN CA 5 MG TABLET (FP) PO SCH (22:00)
[2018-08-07] MEDS: TAMSULOSIN HCL 0.4 MG CAP PO SCH (23:16)
[2018-08-08] MEDS ORDERED: PIPERACILLIN/TAZOBACTAM 3.375 GM VIAL IVPB ONE ×3 (02:00→16:54)
[2018-08-08] MEDS ORDERED: DEXTROSE 5%-WATER - 50 ML IVPB ONE ×3 (02:00→16:54)
[2018-08-08] MEDS: HEPARIN SOD,PORK IN 0.45% NACL 25,000 UNITS/500 ML INFUS.BAG IVPB SCH (02:25)
[2018-08-08] MEDS: PIPERACILLIN/TAZOB 3.375 GM 3.375 GM in DEXTROSE 5%-WATER - 50 ML IVPB SCH ×3 (02:26→17:13)
[2018-08-08] MEDS: VANCOMYCIN 1 GRAM (PRE-DOCKED) 1,000 MG/250 ML BAG IVPB SCH ×2 (02:55→14:46)
[2018-08-08 08:40] LABS: HEMATOCRIT 30.4 % (35.4-49); MCH 29.1 pg (25.7-33.7); MCHC 32.7 g/dl (32.0-35.9); MEAN CELL VOLUME 88.8 fl (80-96); MEAN PLT VOLUME 8.1 fl (7.5-11.1); RBC 3.43 M/mm3 (4.00-5.60); RDW 14.8 % (11.9-15.9); WHITE BLOOD COUNT 12.3 K/mm3 (4.0-10.0)
[2018-08-08 08:57] LABS: PLATELET COUNT 423 K/MM3 (134-434)
[2018-08-08 09:14] LABS: BLOOD UREA NITROGEN 13.4 mg/dL (7-18); CALCIUM 8.8 mg/dL (8.5-10.1); CREATININE 1.2 mg/dL (0.55-1.3); POTASSIUM 3.7 mmol/L (3.5-5.1)
[2018-08-08] MEDS: FUROSEMIDE 40 MG/4 ML INJECTABLE VIAL IVPUSH SCH (10:01)
[2018-08-08] MEDS: PANTOPRAZOLE 40 MG TABLET (FP) PO SCH (10:01)
[2018-08-08] MEDS: AMIODARONE HCL 200 MG TABLET (FP) PO SCH (10:01)
[2018-08-08] MEDS: VALSARTAN 80 MG TABLET (UD) PO SCH (10:01)
[2018-08-08] MEDS ORDERED: MIDAZOLAM HCL 2 MG/2 ML SINGLE DOSE VIAL ONE (12:47)
[2018-08-08] MEDS ORDERED: PROPOFOL 20 ML ONE (12:47)
[2018-08-08] MEDS ORDERED: LIDOCAINE HCL/PF 2% SDV 5ML VIAL ONE (13:09)
[2018-08-08] MEDS ORDERED: ceFAZolin SODIUM 1 GM VIAL ONE (13:10)
[2018-08-08] MEDS ORDERED: SODIUM CHLORIDE 0.9% P/F 10 ML VIAL IJ ONE ×2 (13:10→13:21)
[2018-08-08] MEDS ORDERED: ceFAZolin SODIUM 1 GM VIAL IVPB ONE (13:11)
[2018-08-08] MEDS ORDERED: VANCOMYCIN 1,000 MG VIAL (RESTRICTED TO ID ONLY) IVPB ONE (13:12)
[2018-08-08] MEDS ORDERED: KETOROLAC TROMETHAMINE 30 MG/1 ML VIAL ONE (13:15)
[2018-08-08] MEDS ORDERED: VANCOMYCIN 1,000 MG VIAL (RESTRICTED TO ID ONLY) ONE (13:21)
[2018-08-08] MEDS ORDERED: LIDOCAINE HCL 1%, 10 MG/ML (20ML VIAL) NR ONE ×2 (13:23)
[2018-08-08] MEDS ORDERED: PROMETHAZINE HCL 25 MG/1 ML VIAL IVPUSH PRN ×2 (13:47→14:05)
[2018-08-08] MEDS ORDERED: ONDANSETRON 4 MG/2 ML VIAL IVPUSH PRN ×2 (13:47→14:05)
--- NOTE | 2018-08-08 13:57 | OP ---
Operative Note - Note: Operative Date: 08/08/18 Pre-Operative Diagnosis: left calf abscess Operation: Incision and drainage of left calf Findings: minimal pus found cx taken Post-Operative Diagnosis: Same as Pre-op Surgeon: Pj Camara Anesthesia: Fractional Estimated Blood Loss (mls): 20 Operative Report Dictated: Yes
[2018-08-08] MEDS ORDERED: HEPARIN NA (PORCINE) 5,000 UNITS/ML 1ML VIAL IVPUSH PRN ×6 (13:59→16:00)
[2018-08-08] MEDS ORDERED: HEPARIN INFUSION - 25,000 UNITS/500 ML INFUS.BAG IVPB SCH ×2 (14:00→16:00)
[2018-08-08] MEDS ORDERED: LACTATED RINGERS SOLUTION 1,000 ML IV SCH ×2 (14:00→14:05)
--- NOTE | 2018-08-08 14:42 | PN ---
Progress Note (short form) - Note Progress Note: Current Medications Acetaminophen (Tylenol -) 650 mg PO Q8H PRN PRN Reason: FEVER Amiodarone HCl (Cordarone -) 200 mg PO DAILY [facility] Docusate Sodium (Colace -) 100 mg PO Q8H PRN PRN Reason: CONSTIPATION Furosemide (Lasix Injection -) 20 mg IVPUSH DAILY [facility] Heparin Sodium (Porcine) (Heparin -) 1,000 unit IVPUSH PRN PRN PRN Reason: Heparin Heparin Sodium (Porcine) (Heparin -) 5,000 unit IVPUSH PRN PRN PRN Reason: Heparin Heparin Sodium/Dextrose (Heparin Infusion -) 25,000 units in 500 mls @ 20 mls/ hr IVPB TITR [facility]; Protocol Vancomycin HCl (Vancomycin (Pre-Docked)) 1,000 mg in 250 mls @ 166.667 mls/hr IVPB Q12H [facility]; Protocol Piperacillin Sod/Tazobactam (Sod 3.375 gm/ Dextrose) 50 mls @ 100 mls/hr IVPB Q8H-IV [facility]; Protocol Ondansetron HCl (Zofran Injection) 4 mg IVPUSH Q6H PRN PRN Reason: NAUSEA AND/OR VOMITING Pantoprazole Sodium (Protonix -) 40 mg PO DAILY [facility] Rosuvastatin Calcium (Crestor -) 5 mg PO HS [facility] Tamsulosin HCl (Flomax -) 0.4 mg PO 0830,2200 [facility] Valsartan (Diovan -) 80 mg PO DAILY [facility] Abnormal Lab Results 08/08/18 08/08/18 08/08/18 06:35 06:35 06:35 WBC 12.3 H RBC 3.43 L Hgb 10.0 L Hct 30.4 L PTT (Actin FS) 44.3 H Anion Gap 6 L TSH 4.23 H Vital Signs Temperature 98.2 F 08/08/18 13:43 Pulse Rate 66 08/08/18 14:15 Respiratory Rate 18 08/08/18 14:15 Blood Pressure 109/72 08/08/18 14:15 O2 Sat by Pulse Oximetry (%) 97 08/08/18 14:15 post op; groggy ```````````` heart--irreg neuro--groggy but rousable `````````````````````````` summ > abscess--LLE; s/p I&D by dr Camara; cont ABs and await results of cultures > Htn--BP Okay; stop IV Lasix; ARB with parameters > anemia--pre-op; mild & stable > High TSH--mild; will check T4 > At flutter--stable; on a/c & amiodarone; BB not needed. ~~~~~~~~~~~~~~~ Dr Hyde Problem List - Problems (1) Post-operative wound abscess Code(s): T81.49XA - INFECTION FOLLOWING A PROCEDURE, OTHER SURGICAL SITE, INIT (2) S/P CABG x 3 Code(s): Z95.1 - PRESENCE OF AORTOCORONARY BYPASS GRAFT (3) Hypertensive heart disease Code(s): I11.9 - HYPERTENSIVE HEART DISEASE WITHOUT HEART FAILURE Qualifiers: Heart failure presence: without heart failure Qualified Code(s): I11.9 - Hypertensive heart disease without heart failure (4) Hypercoagulable state Code(s): D68.59 - OTHER PRIMARY THROMBOPHILIA (5) Atrial flutter with controlled response Code(s): I48.92 - UNSPECIFIED ATRIAL FLUTTER (6) History of heart attack Code(s): I25.2 - OLD MYOCARDIAL INFARCTION (7) Lipidemia Code(s): E78.5 - HYPERLIPIDEMIA, UNSPECIFIED Qualifiers: Hyperlipidemia type: unspecified Qualified Code(s): E78.5 - Hyperlipidemia , unspecified (8) BPH associated with nocturia Code(s): N40.1 - BENIGN PROSTATIC HYPERPLASIA WITH LOWER URINARY TRACT SYMP; R35.1 - NOCTURIA (9) Migraine Code(s): G43.909 - MIGRAINE, UNSP, NOT INTRACTABLE, WITHOUT STATUS MIGRAINOSUS Qualifiers: Migraine type: unspecified Intractability: not intractable (10) Long-term (current) use of anticoagulants, INR goal 2.0-3.0 Code(s): Z79.01 - [facility] (CURRENT) USE OF ANTICOAGULANTS
--- NOTE | 2018-08-08 16:28 | OP ---
DATE OF OPERATION: 08/08/2018 PREOPERATIVE DIAGNOSIS: Left calf abscess. POSTOPERATIVE DIAGNOSIS: Left calf abscess. PROCEDURE: Incision and drainage of left calf. SURGEON: Pj Sparks DO ANESTHESIA: Fractional. BLOOD LOSS: 20 mL PROCEDURE IN DETAIL: The patient is an 82-year-old male that came in to the hospital with left calf cellulitis. Patient had a harvesting of his greater saphenous vein performed about 2 months ago for his CABG and has developed a wound ever since there and now has cellulitis. CT scan performed preoperatively showed a collection in that area of the greater saphenous vein distribution. We explained to the patient that we would go ahead and go through the open wound and try to drain the calf in the greater saphenous vein distribution. Patient was consented for the procedure, understanding all risks, benefits and alternatives, then taken to the operating room. Once in the operating room, laid on the operating table in supine position, and the area of the left calf was prepped and draped in a sterile surgical manner. We then went ahead and injected 10 mL of lidocaine 1% along the left medial and distal calf. We then went ahead and took a long Metzenbaum scissors and placed the Metzenbaum scissors in multiple planes in the left calf and went ahead and broke up all the loculations and all of the indurated areas that we can feel in the left calf. Minimal pus was expressed. We then went ahead and irrigated copiously in the left calf and we went ahead and packed it with a moist 4 x 4. Dry 4 x 4 and Kerlix were then placed. During the case, cultures were taken of the left calf, as well, through the wound. Patient tolerated the procedure with no complications. Patient transferred to PACU in stable condition. PJ SPARKS DO [employer] MACHINE OPERATOR/[id number]
--- NOTE | 2018-08-08 17:41 | PN ---
Progress Note, Physician History of Present Illness: S/P I&D L LE COLLECTION NO C/O PAIN AFEBRILE WBC 12.3 - Current Medication List Current Medications: Active Medications Acetaminophen (Tylenol -) 650 mg PO Q8H PRN PRN Reason: FEVER Amiodarone HCl (Cordarone -) 200 mg PO DAILY [facility] Docusate Sodium (Colace -) 100 mg PO Q8H PRN PRN Reason: CONSTIPATION Heparin Sodium (Porcine) (Heparin -) 5,000 unit IVPUSH PRN PRN PRN Reason: Heparin Vancomycin HCl (Vancomycin (Pre-Docked)) 1,000 mg in 250 mls @ 166.667 mls/hr IVPB Q12H [facility]; Protocol Piperacillin Sod/Tazobactam (Sod 3.375 gm/ Dextrose) 50 mls @ 100 mls/hr IVPB Q8H-IV [facility]; Protocol Last Admin: 08/08/18 17:13 Dose: 100 mls/hr Heparin Sodium/Dextrose (Heparin Infusion -) 25,000 units in 500 mls @ 20 mls/ hr IVPB TITR [facility]; Protocol Last Admin: 08/08/18 16:53 Dose: Not Given Ondansetron HCl (Zofran Injection) 4 mg IVPUSH Q6H PRN PRN Reason: NAUSEA AND/OR VOMITING Pantoprazole Sodium (Protonix -) 40 mg PO DAILY [facility] Rosuvastatin Calcium (Crestor -) 5 mg PO HS [facility] Tamsulosin HCl (Flomax -) 0.4 mg PO 0830,2200 [facility] Valsartan (Diovan -) 80 mg PO DAILY [facility] - Objective Vital Signs: Vital Signs Temperature 97.5 F L 08/08/18 15:00 Pulse Rate 78 08/08/18 15:00 Respiratory Rate 18 08/08/18 15:00 Blood Pressure 105/79 08/08/18 15:00 O2 Sat by Pulse Oximetry (%) 98 08/08/18 15:00 Constitutional: Yes: No Distress Eyes: Yes: Conjunctiva Clear Cardiovascular: Yes: Regular Rate and Rhythm, S1, S2 Respiratory: Yes: CTA Bilaterally Gastrointestinal: Yes: Normal Bowel Sounds, Soft. No: Tenderness Extremities: Yes: Other (POST OP DRESSING IN PLACE) Labs: CBC, BMP 08/08/18 06:35 08/08/18 06:35 Assessment/Plan S/P I&D L LE FLUID COLLECTION R/O INFECTED SEROMA CELLULITIS L LE AWAIT C/S CONTINUE VANCO/ZOSYN
[2018-08-08] MEDS: ROSUVASTATIN CA 5 MG TABLET (FP) PO SCH (21:30)
[2018-08-08] MEDS: TAMSULOSIN HCL 0.4 MG CAP PO SCH (21:30)
[2018-08-08] MEDS ORDERED: TAMSULOSIN HCL 0.4 MG CAP PO SCH (22:00)
[2018-08-09] MEDS ORDERED: PIPERACILLIN/TAZOBACTAM 3.375 GM VIAL IVPB ONE ×3 (01:14→17:31)
[2018-08-09] MEDS ORDERED: DEXTROSE 5%-WATER - 50 ML IVPB ONE ×3 (01:15→17:31)
[2018-08-09] MEDS: PIPERACILLIN/TAZOB 3.375 GM 3.375 GM in DEXTROSE 5%-WATER - 50 ML IVPB SCH ×3 (01:27→17:34)
[2018-08-09] MEDS: VANCOMYCIN 1 GRAM (PRE-DOCKED) 1,000 MG/250 ML BAG IVPB SCH ×2 (01:27→13:22)
[2018-08-09] MEDS: ACETAMINOPHEN 325 MG TABLET (FP) PO PRN (07:34)
[2018-08-09 07:42] LABS: BLOOD UREA NITROGEN 21.4 mg/dL (7-18); CALCIUM 9.1 mg/dL (8.5-10.1); CREATININE 1.4 mg/dL (0.55-1.3); POTASSIUM 3.7 mmol/L (3.5-5.1)
[2018-08-09 08:29] LABS: HEMATOCRIT 31.3 % (35.4-49); HEMOGLOBIN 10.3 GM/dL (11.7-16.9); MCH 29.1 pg (25.7-33.7); MCHC 32.8 g/dl (32.0-35.9); MEAN CELL VOLUME 88.7 fl (80-96); MEAN PLT VOLUME 7.9 fl (7.5-11.1); PLATELET COUNT 422 K/MM3 (134-434); RBC 3.52 M/mm3 (4.00-5.60); RDW 15.2 % (11.9-15.9); WHITE BLOOD COUNT 12.1 K/mm3 (4.0-10.0)
--- NOTE | 2018-08-09 08:42 | PN ---
Progress Note (short form) - Note Progress Note: 82yo M s/p LLE I&D POD 1, pt seen and examined at bedside. Pt states he feels well, denies fever overnight. Pt state his pain is improved and he has been able to walk better. Last Vital Signs Temp Pulse Resp BP Pulse Ox 98.2 F 72 20 125/78 98 08/09/18 05:37 08/09/18 05:37 08/09/18 05:37 08/09/18 05:37 08/08/18 21:00 CBC, BMP 08/09/18 06:07 PE: Gen: A&O X3 Resp: breathing comfortably LLE: 2cm wound on anterior santos with 3cm tunnel tracking proximally, anterior santos indurated mildly red, but no johann pus from wound. wet to dry dressing placed at bedside Problem List - Problems (1) Post-operative wound abscess Assessment/Plan: Plan -wet to dry dressing while in house -abx as per ID -follow up with Dr. Camara as outpatient in 2 weeks Case discussed with Dr. Camara who agrees with plan Code(s): T81.49XA - INFECTION FOLLOWING A PROCEDURE, OTHER SURGICAL SITE, INIT
[2018-08-09] MEDS ORDERED: FUROSEMIDE 40 MG/4 ML INJECTABLE VIAL IVPUSH SCH (10:00)
[2018-08-09] MEDS: PANTOPRAZOLE 40 MG TABLET (FP) PO SCH (10:14)
[2018-08-09] MEDS: VALSARTAN 80 MG TABLET (UD) PO SCH (10:15)
[2018-08-09] MEDS: AMIODARONE HCL 200 MG TABLET (FP) PO SCH (10:15)
[2018-08-09] MEDS: TAMSULOSIN HCL 0.4 MG CAP PO SCH ×2 (10:15→21:52)
--- NOTE | 2018-08-09 14:27 | PN ---
Progress Note, Physician History of Present Illness: S/P I&D L LE COLLECTION OPERATIVE FINDINGS DISCUSSED WITH DR SPARKS AFEBRILE WBC 12.3 WOUND C/S NO GROWTH - Current Medication List Current Medications: Active Medications Acetaminophen (Tylenol -) 650 mg PO Q8H PRN PRN Reason: FEVER Last Admin: 08/09/18 07:34 Dose: 650 mg Amiodarone HCl (Cordarone -) 200 mg PO DAILY [facility] Last Admin: 08/09/18 10:15 Dose: 200 mg Docusate Sodium (Colace -) 100 mg PO Q8H PRN PRN Reason: CONSTIPATION Heparin Sodium (Porcine) (Heparin -) 5,000 unit IVPUSH PRN PRN PRN Reason: Heparin Last Admin: 08/09/18 08:42 Dose: 5,000 unit Vancomycin HCl (Vancomycin (Pre-Docked)) 1,000 mg in 250 mls @ 166.667 mls/hr IVPB Q12H [facility]; Protocol Last Admin: 08/09/18 13:22 Dose: 166.667 mls/hr Piperacillin Sod/Tazobactam (Sod 3.375 gm/ Dextrose) 50 mls @ 100 mls/hr IVPB Q8H-IV [facility]; Protocol Last Admin: 08/09/18 10:17 Dose: 100 mls/hr Heparin Sodium/Dextrose (Heparin Infusion -) 25,000 units in 500 mls @ 20 mls/ hr IVPB TITR [facility]; Protocol Last Admin: 08/08/18 16:53 Dose: Not Given Ondansetron HCl (Zofran Injection) 4 mg IVPUSH Q6H PRN PRN Reason: NAUSEA AND/OR VOMITING Pantoprazole Sodium (Protonix -) 40 mg PO DAILY [facility] Last Admin: 08/09/18 10:14 Dose: 40 mg Rosuvastatin Calcium (Crestor -) 5 mg PO HS [facility] Last Admin: 08/08/18 21:30 Dose: 5 mg Tamsulosin HCl (Flomax -) 0.4 mg PO 0830,2200 [facility] Last Admin: 08/09/18 10:15 Dose: 0.4 mg Valsartan (Diovan -) 80 mg PO DAILY [facility] Last Admin: 08/09/18 10:15 Dose: 80 mg - Objective Vital Signs: Vital Signs Temperature 98.8 F 08/09/18 10:00 Pulse Rate 71 08/09/18 10:00 Respiratory Rate 20 08/09/18 10:00 Blood Pressure 118/74 08/09/18 10:00 O2 Sat by Pulse Oximetry (%) 98 08/08/18 21:00 Constitutional: Yes: No Distress Cardiovascular: Yes: Regular Rate and Rhythm, S1, S2 Respiratory: Yes: CTA Bilaterally Gastrointestinal: Yes: Normal Bowel Sounds, Soft. No: Tenderness Extremities: Yes: Other (DECREASED ERYTHEMA/ WARMTH L LE. WOUND WITH PACKING. SEROUS DRAINAGE) Labs: CBC, BMP 08/09/18 06:07 08/09/18 06:07 Assessment/Plan S/P I&D L LE FLUID COLLECTION R/O INFECTED SEROMA CELLULITIS L LE IMPROVED; LEG STILL RED/WARM CONTINUE VANCO/ZOSYN ELEVATION
--- NOTE | 2018-08-09 15:18 | PN ---
Progress Note (short form) - Note Progress Note: 82M POD1 I and D of left santos under a total IV anesthetic. Pt appears comfortable, there are no known anesthetic complications. AVSS. Continue current regimen.
[2018-08-09] MEDS ORDERED: DABIGATRAN ETEXILATE MESYLATE 150 MG CAPSULE PO STA (17:21)
--- NOTE | 2018-08-09 17:30 | PN ---
Progress Note (short form) - Note Progress Note: Current Medications Acetaminophen (Tylenol -) 650 mg PO Q8H PRN PRN Reason: FEVER Last Admin: 08/09/18 07:34 Dose: 650 mg Amiodarone HCl (Cordarone -) 200 mg PO DAILY [facility] Last Admin: 08/09/18 10:15 Dose: 200 mg Dabigatran (Pradaxa -) 150 mg PO ONCE STA Stop: 08/09/18 17:22 Dabigatran (Pradaxa -) 150 mg PO BID [facility] Docusate Sodium (Colace -) 100 mg PO Q8H PRN PRN Reason: CONSTIPATION Vancomycin HCl (Vancomycin (Pre-Docked)) 1,000 mg in 250 mls @ 166.667 mls/hr IVPB Q12H [facility]; Protocol Last Admin: 08/09/18 13:22 Dose: 166.667 mls/hr Piperacillin Sod/Tazobactam (Sod 3.375 gm/ Dextrose) 50 mls @ 100 mls/hr IVPB Q8H-IV [facility]; Protocol Last Admin: 08/09/18 10:17 Dose: 100 mls/hr Ondansetron HCl (Zofran Injection) 4 mg IVPUSH Q6H PRN PRN Reason: NAUSEA AND/OR VOMITING Pantoprazole Sodium (Protonix -) 40 mg PO DAILY [facility] Last Admin: 08/09/18 10:14 Dose: 40 mg Rosuvastatin Calcium (Crestor -) 5 mg PO HS [facility] Last Admin: 08/08/18 21:30 Dose: 5 mg Tamsulosin HCl (Flomax -) 0.4 mg PO 0830,2200 [facility] Last Admin: 08/09/18 10:15 Dose: 0.4 mg Valsartan (Diovan -) 80 mg PO DAILY [facility] Last Admin: 08/09/18 10:15 Dose: 80 mg Laboratory Results - last 24 hr 08/08/18 08/08/18 08/09/18 06:07 21:05 06:07 WBC 12.1 H RBC 3.52 L Hgb 10.3 L Hct 31.3 L MCV 88.7 MCH 29.1 MCHC 32.8 RDW 15.2 Plt Count 422 MPV 7.9 PTT (Actin FS) 53.9 H Sodium Potassium Chloride Carbon Dioxide Anion Gap BUN Creatinine Est GFR (CKD-EPI)AfAm Est GFR (CKD-EPI)NonAf Random Glucose Calcium Free T4 Vancomycin Pre-Dose Blood Type AB POSITIVE 08/09/18 08/09/18 08/09/18 06:07 06:07 06:07 WBC RBC Hgb Hct MCV MCH MCHC RDW Plt Count MPV PTT (Actin FS) 40.0 H Sodium 138 Potassium 3.7 Chloride 102 Carbon Dioxide 31 Anion Gap 6 L BUN 21.4 H Creatinine 1.4 H Est GFR (CKD-EPI)AfAm 54.61 Est GFR (CKD-EPI)NonAf 47.12 Random Glucose 87 Calcium 9.1 Free T4 1.31 H Vancomycin Pre-Dose Blood Type 08/09/18 13:30 WBC RBC Hgb Hct MCV MCH MCHC RDW Plt Count MPV PTT (Actin FS) Sodium Potassium Chloride Carbon Dioxide Anion Gap BUN Creatinine Est GFR (CKD-EPI)AfAm Est GFR (CKD-EPI)NonAf Random Glucose Calcium Free T4 Vancomycin Pre-Dose 20.2 Blood Type Vital Signs Temperature 97.6 F 08/09/18 14:00 Pulse Rate 87 08/09/18 14:00 Respiratory Rate 20 08/09/18 14:00 Blood Pressure 119/84 08/09/18 14:00 O2 Sat by Pulse Oximetry (%) 98 08/08/18 21:00 :: has less tightness; discomfort on the LLE ```````````` heart--irreg lungs--clear ext--dressing on operative site; surrounding skin dusky, and some areas of warmth & tenderness; no posterior knee fossa tenderness neuro--alert; coherent `````````````````````````` summ > abscess--as described on LLE; s/p I&D by dr Camara; cultures resulted as negative but clinically infected; ID note read; cont ABs & wound care. > Htn--w/ mild renal insuff, BP Okay w/o meds. > anemia--pre-op; mild & stable; check daily. > High TSH--mild; also high? effect of Amiodarone; clinically euthyroid. > At flutter--stable; on a/c & amiodarone; BB not needed. ~~~~~~~~~~~~~~~ Dr Hyde Problem List - Problems (1) Post-operative wound abscess Code(s): T81.49XA - INFECTION FOLLOWING A PROCEDURE, OTHER SURGICAL SITE, INIT (2) S/P CABG x 3 Code(s): Z95.1 - PRESENCE OF AORTOCORONARY BYPASS GRAFT (3) Hypertensive heart disease Code(s): I11.9 - HYPERTENSIVE HEART DISEASE WITHOUT HEART FAILURE Qualifiers: Heart failure presence: without heart failure Qualified Code(s): I11.9 - Hypertensive heart disease without heart failure (4) Hypercoagulable state Code(s): D68.59 - OTHER PRIMARY THROMBOPHILIA (5) Atrial flutter with controlled response Code(s): I48.92 - UNSPECIFIED ATRIAL FLUTTER (6) History of heart attack Code(s): I25.2 - OLD MYOCARDIAL INFARCTION (7) Lipidemia Code(s): E78.5 - HYPERLIPIDEMIA, UNSPECIFIED Qualifiers: Hyperlipidemia type: unspecified Qualified Code(s): E78.5 - Hyperlipidemia , unspecified (8) BPH associated with nocturia Code(s): N40.1 - BENIGN PROSTATIC HYPERPLASIA WITH LOWER URINARY TRACT SYMP; R35.1 - NOCTURIA (9) Migraine Code(s): G43.909 - MIGRAINE, UNSP, NOT INTRACTABLE, WITHOUT STATUS MIGRAINOSUS Qualifiers: Migraine type: unspecified Intractability: not intractable (10) Long-term (current) use of anticoagulants, INR goal 2.0-3.0 Code(s): Z79.01 - NURSING HOME (CURRENT) USE OF ANTICOAGULANTS
[2018-08-09] MEDS ORDERED: PT OWN MED DRAWER 7, Y5N ONE (19:19)
[2018-08-09] MEDS: ROSUVASTATIN CA 5 MG TABLET (FP) PO SCH (21:51)
[2018-08-10] MEDS ORDERED: PIPERACILLIN/TAZOBACTAM 3.375 GM VIAL IVPB ONE ×3 (01:18→17:22)
[2018-08-10] MEDS ORDERED: DEXTROSE 5%-WATER - 50 ML IVPB ONE ×3 (01:19→17:22)
[2018-08-10] MEDS: PIPERACILLIN/TAZOB 3.375 GM 3.375 GM in DEXTROSE 5%-WATER - 50 ML IVPB SCH ×3 (01:39→17:34)
[2018-08-10] MEDS: VANCOMYCIN 1 GRAM (PRE-DOCKED) 1,000 MG/250 ML BAG IVPB SCH ×2 (02:01→12:56)
[2018-08-10] MEDS ORDERED: PT OWN MED DRAWER 7, Y5N ONE (06:57)
[2018-08-10 07:58] LABS: BLOOD UREA NITROGEN 15.2 mg/dL (7-18); CALCIUM 8.7 mg/dL (8.5-10.1); CREATININE 1.3 mg/dL (0.55-1.3); HEMATOCRIT 31.5 % (35.4-49); HEMOGLOBIN 10.4 GM/dL (11.7-16.9); MCH 29.3 pg (25.7-33.7); MCHC 33.2 g/dl (32.0-35.9); MEAN CELL VOLUME 88.5 fl (80-96); MEAN PLT VOLUME 7.7 fl (7.5-11.1); POTASSIUM 3.5 mmol/L (3.5-5.1); RBC 3.56 M/mm3 (4.00-5.60); RDW 14.8 % (11.9-15.9); WHITE BLOOD COUNT 10.6 K/mm3 (4.0-10.0)
[2018-08-10] MEDS: TAMSULOSIN HCL 0.4 MG CAP PO SCH ×2 (09:02→21:09)
[2018-08-10] MEDS: PANTOPRAZOLE 40 MG TABLET (FP) PO SCH (11:01)
[2018-08-10] MEDS: VALSARTAN 80 MG TABLET (UD) PO SCH (11:02)
[2018-08-10] MEDS: AMIODARONE HCL 200 MG TABLET (FP) PO SCH (11:02)
[2018-08-10] MEDS: DABIGATRAN ETEXILATE MESYLATE 150 MG CAPSULE PO SCH ×2 (11:03→21:09)
[2018-08-10 14:11] LABS: PLATELET COUNT 474 K/MM3 (134-434)
--- NOTE | 2018-08-10 15:46 | PN ---
Progress Note (short form) - Note Progress Note: Current Medications Acetaminophen (Tylenol -) 650 mg PO Q8H PRN PRN Reason: FEVER Last Admin: 08/09/18 07:34 Dose: 650 mg Amiodarone HCl (Cordarone -) 200 mg PO DAILY [facility] Last Admin: 08/10/18 11:02 Dose: 200 mg Dabigatran (Pradaxa -) 150 mg PO BID [facility] Last Admin: 08/10/18 11:03 Dose: 150 mg Docusate Sodium (Colace -) 100 mg PO Q8H PRN PRN Reason: CONSTIPATION Vancomycin HCl (Vancomycin (Pre-Docked)) 1,000 mg in 250 mls @ 166.667 mls/hr IVPB Q12H [facility]; Protocol Last Admin: 08/10/18 12:56 Dose: 166.667 mls/hr Piperacillin Sod/Tazobactam (Sod 3.375 gm/ Dextrose) 50 mls @ 100 mls/hr IVPB Q8H-IV [facility]; Protocol Last Admin: 08/10/18 11:03 Dose: 100 mls/hr Ondansetron HCl (Zofran Injection) 4 mg IVPUSH Q6H PRN PRN Reason: NAUSEA AND/OR VOMITING Pantoprazole Sodium (Protonix -) 40 mg PO DAILY [facility] Last Admin: 08/10/18 11:01 Dose: 40 mg Rosuvastatin Calcium (Crestor -) 5 mg PO HS [facility] Last Admin: 08/09/18 21:51 Dose: 5 mg Tamsulosin HCl (Flomax -) 0.4 mg PO 0830,2200 [facility] Last Admin: 08/10/18 09:02 Dose: 0.4 mg Valsartan (Diovan -) 80 mg PO DAILY [facility] Last Admin: 08/10/18 11:02 Dose: 80 mg Laboratory Results - last 24 hr 08/09/18 08/10/18 08/10/18 17:30 07:03 07:03 WBC 10.6 H RBC 3.56 L Hgb 10.4 L Hct 31.5 L MCV 88.5 MCH 29.3 MCHC 33.2 RDW 14.8 Plt Count 474 H MPV 7.7 PTT (Actin FS) 46.1 H 40.5 H Sodium Potassium Chloride Carbon Dioxide Anion Gap BUN Creatinine Est GFR (CKD-EPI)AfAm Est GFR (CKD-EPI)NonAf Random Glucose Calcium 08/10/18 07:03 WBC RBC Hgb Hct MCV MCH MCHC RDW Plt Count MPV PTT (Actin FS) Sodium 140 Potassium 3.5 Chloride 106 Carbon Dioxide 29 Anion Gap 5 L BUN 15.2 Creatinine 1.3 Est GFR (CKD-EPI)AfAm 59.73 Est GFR (CKD-EPI)NonAf 51.53 Random Glucose 79 Calcium 8.7 Vital Signs Temperature 98.8 F 08/10/18 15:02 Pulse Rate 89 08/10/18 15:02 Respiratory Rate 20 08/10/18 15:02 Blood Pressure 124/87 08/10/18 15:02 O2 Sat by Pulse Oximetry (%) 95 08/09/18 21:00 CC: has less tightness today but does have some focal tenderness; less pain when walking ```````````` heart--irreg lungs--clear ext--dressing on operative site; surrounding skin dusky, and some areas of warmth & tenderness. neuro--alert; coherent `````````````````````````` summ > abscess--as described on LLE; s/p I&D by dr Camara; cultures resulted as negative but clinically infected; ID note read; cont ABs & wound care. > Htn--w/ mild renal insuff, BP Okay w/o meds. > anemia--pre-op; mild & stable; check daily. > High TSH--mild; T4 also high? effect of Amiodarone; clinically euthyroid. > At flutter--stable; on a/c & amiodarone; BB not needed. ~~~~~~~~~~~~~~~ Dr Hyde Problem List - Problems (1) Post-operative wound abscess Code(s): T81.49XA - INFECTION FOLLOWING A PROCEDURE, OTHER SURGICAL SITE, INIT (2) S/P CABG x 3 Code(s): Z95.1 - PRESENCE OF AORTOCORONARY BYPASS GRAFT (3) Hypertensive heart disease Code(s): I11.9 - HYPERTENSIVE HEART DISEASE WITHOUT HEART FAILURE Qualifiers: Heart failure presence: without heart failure Qualified Code(s): I11.9 - Hypertensive heart disease without heart failure (4) Hypercoagulable state Code(s): D68.59 - OTHER PRIMARY THROMBOPHILIA (5) Atrial flutter with controlled response Code(s): I48.92 - UNSPECIFIED ATRIAL FLUTTER (6) History of heart attack Code(s): I25.2 - OLD MYOCARDIAL INFARCTION (7) Lipidemia Code(s): E78.5 - HYPERLIPIDEMIA, UNSPECIFIED Qualifiers: Hyperlipidemia type: unspecified Qualified Code(s): E78.5 - Hyperlipidemia , unspecified (8) BPH associated with nocturia Code(s): N40.1 - BENIGN PROSTATIC HYPERPLASIA WITH LOWER URINARY TRACT SYMP; R35.1 - NOCTURIA (9) Migraine Code(s): G43.909 - MIGRAINE, UNSP, NOT INTRACTABLE, WITHOUT STATUS MIGRAINOSUS Qualifiers: Migraine type: unspecified Intractability: not intractable (10) Long-term (current) use of anticoagulants, INR goal 2.0-3.0 Code(s): Z79.01 - CARE HOME (CURRENT) USE OF ANTICOAGULANTS
[2018-08-10] MEDS: DOCUSATE SODIUM 100 MG CAPSULE (FP) PO PRN (17:34)
[2018-08-10] MEDS ORDERED: diphenhydrAMINE HCL 25 MG CAPSULE (FP) PO PRN (20:17)
[2018-08-10] MEDS: ACETAMINOPHEN 325 MG TABLET (FP) PO PRN (20:38)
[2018-08-10] MEDS: ROSUVASTATIN CA 5 MG TABLET (FP) PO SCH (21:10)
[2018-08-11] MEDS ORDERED: PIPERACILLIN/TAZOBACTAM 3.375 GM VIAL IVPB ONE ×3 (01:30→16:57)
[2018-08-11] MEDS ORDERED: DEXTROSE 5%-WATER - 50 ML IVPB ONE ×3 (01:31→16:57)
[2018-08-11] MEDS: VANCOMYCIN 1 GRAM (PRE-DOCKED) 1,000 MG/250 ML BAG IVPB SCH ×2 (02:30→13:01)
[2018-08-11] MEDS: PIPERACILLIN/TAZOB 3.375 GM 3.375 GM in DEXTROSE 5%-WATER - 50 ML IVPB SCH ×3 (02:30→17:34)
[2018-08-11 07:39] LABS: BLOOD UREA NITROGEN 17.3 mg/dL (7-18); CALCIUM 9.1 mg/dL (8.5-10.1); CREATININE 1.3 mg/dL (0.55-1.3); POTASSIUM 3.7 mmol/L (3.5-5.1)
[2018-08-11] MEDS ORDERED: PT OWN MED DRAWER 7, Y5N ONE (09:56)
[2018-08-11] MEDS: TAMSULOSIN HCL 0.4 MG CAP PO SCH ×2 (10:14→21:33)
[2018-08-11] MEDS: AMIODARONE HCL 200 MG TABLET (FP) PO SCH (10:14)
[2018-08-11] MEDS: DOCUSATE SODIUM 100 MG CAPSULE (FP) PO PRN ×2 (10:14→21:33)
[2018-08-11] MEDS: VALSARTAN 80 MG TABLET (UD) PO SCH (10:14)
[2018-08-11] MEDS: PANTOPRAZOLE 40 MG TABLET (FP) PO SCH (10:14)
[2018-08-11] MEDS: DABIGATRAN ETEXILATE MESYLATE 150 MG CAPSULE PO SCH ×2 (10:14→21:33)
[2018-08-11] MEDS: ACETAMINOPHEN 325 MG TABLET (FP) PO PRN ×2 (13:01→21:33)
[2018-08-11] MEDS ORDERED: DICLOFENAC SODIUM 25 MG TABLET.DR PO STA (15:26)
--- NOTE | 2018-08-11 15:33 | PN ---
Progress Note (short form) - Note Progress Note: Current Medications Acetaminophen (Tylenol -) 650 mg PO Q8H PRN PRN Reason: FEVER Last Admin: 08/11/18 13:01 Dose: 650 mg Amiodarone HCl (Cordarone -) 200 mg PO DAILY [facility] Last Admin: 08/11/18 10:14 Dose: 200 mg Dabigatran (Pradaxa -) 150 mg PO BID [facility] Last Admin: 08/11/18 10:14 Dose: 150 mg Diclofenac Sodium (Voltaren -) 50 mg PO ONCE STA Stop: 08/11/18 15:27 Diphenhydramine HCl (Benadryl -) 25 mg PO Q4H PRN PRN Reason: ALLERGIES Last Admin: 08/10/18 20:38 Dose: 25 mg Docusate Sodium (Colace -) 100 mg PO Q8H PRN PRN Reason: CONSTIPATION Last Admin: 08/11/18 10:14 Dose: 100 mg Vancomycin HCl (Vancomycin (Pre-Docked)) 1,000 mg in 250 mls @ 166.667 mls/hr IVPB Q12H [facility]; Protocol Last Admin: 08/11/18 13:01 Dose: 166.667 mls/hr Piperacillin Sod/Tazobactam (Sod 3.375 gm/ Dextrose) 50 mls @ 100 mls/hr IVPB Q8H-IV [facility]; Protocol Last Admin: 08/11/18 10:15 Dose: 100 mls/hr Ondansetron HCl (Zofran Injection) 4 mg IVPUSH Q6H PRN PRN Reason: NAUSEA AND/OR VOMITING Pantoprazole Sodium (Protonix -) 40 mg PO DAILY [facility] Last Admin: 08/11/18 10:14 Dose: 40 mg Rosuvastatin Calcium (Crestor -) 5 mg PO HS [facility] Last Admin: 08/10/18 21:10 Dose: 5 mg Tamsulosin HCl (Flomax -) 0.4 mg PO 0830,2200 [facility] Last Admin: 08/11/18 10:14 Dose: 0.4 mg Valsartan (Diovan -) 80 mg PO DAILY [facility] Last Admin: 08/11/18 10:14 Dose: Not Given Laboratory Results - last 24 hr 08/11/18 06:45 Sodium 141 Potassium 3.7 Chloride 106 Carbon Dioxide 27 Anion Gap 8 BUN 17.3 Creatinine 1.3 Est GFR (CKD-EPI)AfAm 59.73 Est GFR (CKD-EPI)NonAf 51.53 Random Glucose 80 Calcium 9.1 Vital Signs Temperature 98.0 F 08/11/18 13:53 Pulse Rate 99 H 08/11/18 13:53 Respiratory Rate 20 08/11/18 13:53 Blood Pressure 112/75 08/11/18 13:53 O2 Sat by Pulse Oximetry (%) 95 08/10/18 21:00 CC: has less calf tightness but still has area of induration; developed Lt heel and ankle pain ```````````` heart--irreg lungs--clear ext--dressing on operative site; surrounding skin dusky, mild heel tenderness. neuro--alert; coherent `````````````````````````` summ > abscess--as described on LLE; s/p I&D by dr Camara; cultures resulted as negative but clinically infected; ID note read; cont ABs & wound care. > Lt heel pain--onset overnight while at rest; trace edema, but no redness or exquisite tenderness RADHA: Nsaid x 1; warm applications > Htn--w/ mild renal insuff, BP Okay w/o meds. > anemia--pre-op; mild & stable. > High TSH--mild; T4 also high? effect of Amiodarone; clinically euthyroid. > At flutter--stable; on a/c & amiodarone; BB not needed. ~~~~~~~~~~~~~~~ Dr Hyde Problem List - Problems (1) Post-operative wound abscess Code(s): T81.49XA - INFECTION FOLLOWING A PROCEDURE, OTHER SURGICAL SITE, INIT (2) S/P CABG x 3 Code(s): Z95.1 - PRESENCE OF AORTOCORONARY BYPASS GRAFT (3) Hypertensive heart disease Code(s): I11.9 - HYPERTENSIVE HEART DISEASE WITHOUT HEART FAILURE Qualifiers: Heart failure presence: without heart failure Qualified Code(s): I11.9 - Hypertensive heart disease without heart failure (4) Hypercoagulable state Code(s): D68.59 - OTHER PRIMARY THROMBOPHILIA (5) Atrial flutter with controlled response Code(s): I48.92 - UNSPECIFIED ATRIAL FLUTTER (6) History of heart attack Code(s): I25.2 - OLD MYOCARDIAL INFARCTION (7) Lipidemia Code(s): E78.5 - HYPERLIPIDEMIA, UNSPECIFIED Qualifiers: Hyperlipidemia type: unspecified Qualified Code(s): E78.5 - Hyperlipidemia , unspecified (8) BPH associated with nocturia Code(s): N40.1 - BENIGN PROSTATIC HYPERPLASIA WITH LOWER URINARY TRACT SYMP; R35.1 - NOCTURIA (9) Migraine Code(s): G43.909 - MIGRAINE, UNSP, NOT INTRACTABLE, WITHOUT STATUS MIGRAINOSUS Qualifiers: Migraine type: unspecified Intractability: not intractable (10) Long-term (current) use of anticoagulants, INR goal 2.0-3.0 Code(s): Z79.01 - [facility]P (CURRENT) USE OF ANTICOAGULANTS
[2018-08-11] MEDS: ROSUVASTATIN CA 5 MG TABLET (FP) PO SCH (21:33)
[2018-08-12] MEDS ORDERED: PIPERACILLIN/TAZOBACTAM 3.375 GM VIAL IVPB ONE ×3 (02:08→17:43)
[2018-08-12] MEDS ORDERED: DEXTROSE 5%-WATER - 50 ML IVPB ONE ×3 (02:09→17:43)
[2018-08-12] MEDS: PIPERACILLIN/TAZOB 3.375 GM 3.375 GM in DEXTROSE 5%-WATER - 50 ML IVPB SCH ×3 (02:14→17:47)
[2018-08-12] MEDS: VANCOMYCIN 1 GRAM (PRE-DOCKED) 1,000 MG/250 ML BAG IVPB SCH ×3 (02:15→18:52)
[2018-08-12 07:36] LABS: BLOOD UREA NITROGEN 18.3 mg/dL (7-18); CREATININE 1.5 mg/dL (0.55-1.3)
[2018-08-12 07:37] LABS: CALCIUM 8.9 mg/dL (8.5-10.1); POTASSIUM 3.7 mmol/L (3.5-5.1); URIC ACID 2.4 mg/dL (2.6-7.2)
[2018-08-12] MEDS ORDERED: PT OWN MED DRAWER 7, Y5N ONE (08:50)
[2018-08-12] MEDS: TAMSULOSIN HCL 0.4 MG CAP PO SCH ×2 (09:34→21:24)
[2018-08-12] MEDS: PANTOPRAZOLE 40 MG TABLET (FP) PO SCH (09:34)
[2018-08-12] MEDS: DABIGATRAN ETEXILATE MESYLATE 150 MG CAPSULE PO SCH ×2 (09:34→21:24)
[2018-08-12] MEDS: AMIODARONE HCL 200 MG TABLET (FP) PO SCH (09:35)
[2018-08-12] MEDS: ACETAMINOPHEN 325 MG TABLET (FP) PO PRN ×2 (10:08→21:24)
--- NOTE | 2018-08-12 12:58 | PN ---
Progress Note (short form) - Note Progress Note: 82yo M s/p LLE I&D from vein harvest site. Pt seen and examined at bedside. Pt states that his leg is feeling much better. Pt denies fever, chills, n/v. Last Vital Signs Temp Pulse Resp BP Pulse Ox 97.8 F 79 20 121/76 96 08/12/18 06:00 08/12/18 06:00 08/12/18 06:00 08/12/18 06:00 08/11/18 21:00 CBC, BMP 08/10/18 07:03 08/12/18 06:10 PE: Gen: A&Ox3 Resp: breathing comfortably LLE: 1 x 1cm wound tracting 3 cm proximally, wound is clean with no erythema, serous drainage noted, mild redness around calf (improving) Problem List - Problems (1) Post-operative wound abscess Assessment/Plan: Plan -wound appears to be fairly clean with improving erythema, will not continue packing and just place daily dry dressing. -pt may follow up with Dr. Camara as outpatient in 1-2 weeks for wound check Case discussed with Dr. Camara who agrees with plan Code(s): T81.49XA - INFECTION FOLLOWING A PROCEDURE, OTHER SURGICAL SITE, INIT
[2018-08-12] MEDS ORDERED: predniSONE 20 MG TABLET (UD) PO STA (15:32)
--- NOTE | 2018-08-12 15:37 | PN ---
Progress Note (short form) - Note Progress Note: Current Medications Acetaminophen (Tylenol -) 650 mg PO Q8H PRN PRN Reason: FEVER Last Admin: 08/12/18 10:08 Dose: 650 mg Amiodarone HCl (Cordarone -) 200 mg PO DAILY [facility] Last Admin: 08/12/18 09:35 Dose: 200 mg Dabigatran (Pradaxa -) 150 mg PO BID [facility] Last Admin: 08/12/18 09:34 Dose: 150 mg Diphenhydramine HCl (Benadryl -) 25 mg PO Q4H PRN PRN Reason: ALLERGIES Last Admin: 08/10/18 20:38 Dose: 25 mg Docusate Sodium (Colace -) 100 mg PO Q8H PRN PRN Reason: CONSTIPATION Last Admin: 08/11/18 21:33 Dose: 100 mg Vancomycin HCl (Vancomycin (Pre-Docked)) 1,000 mg in 250 mls @ 166.667 mls/hr IVPB Q12H [facility]; Protocol Last Admin: 08/12/18 13:50 Dose: 166.667 mls/hr Piperacillin Sod/Tazobactam (Sod 3.375 gm/ Dextrose) 50 mls @ 100 mls/hr IVPB Q8H-IV [facility]; Protocol Last Admin: 08/12/18 09:34 Dose: 100 mls/hr Ondansetron HCl (Zofran Injection) 4 mg IVPUSH Q6H PRN PRN Reason: NAUSEA AND/OR VOMITING Pantoprazole Sodium (Protonix -) 40 mg PO DAILY [facility] Last Admin: 08/12/18 09:34 Dose: 40 mg Prednisone (Deltasone -) 40 mg PO BID [facility] Prednisone (Deltasone -) 40 mg PO ONCE [facility] Stop: 08/12/18 15:33 Rosuvastatin Calcium (Crestor -) 5 mg PO HS [facility] Last Admin: 08/11/18 21:33 Dose: 5 mg Tamsulosin HCl (Flomax -) 0.4 mg PO 0830,2200 [facility] Last Admin: 08/12/18 09:34 Dose: 0.4 mg Laboratory Results - last 24 hr 08/12/18 06:10 Sodium 139 Potassium 3.7 Chloride 106 Carbon Dioxide 27 Anion Gap 6 L BUN 18.3 H Creatinine 1.5 H Est GFR (CKD-EPI)AfAm 50.24 Est GFR (CKD-EPI)NonAf 43.35 Random Glucose 98 Uric Acid 2.4 L Calcium 8.9 Vital Signs Temperature 98.0 F 08/12/18 14:00 Pulse Rate 93 H 08/12/18 14:00 Respiratory Rate 20 08/12/18 14:00 Blood Pressure 109/63 08/12/18 14:00 O2 Sat by Pulse Oximetry (%) 96 08/11/18 21:00 CC: has less calf tightness but still has area of induration; less heel pain; but more myofascial pain on Lt foot ```````````` heart--irreg lungs--clear ext--dressing on operative site; surrounding skin dusky, (+) tenderness on medial plantar area neuro--alert; coherent `````````````````````````` summ > abscess--as described on LLE; s/p I&D by dr Camara; cultures resulted as negative but clinically infected; cont ABs & wound care. > Lt foot pain--cause unclear (no trauma) migratory pain; urate is WNL; trace edema, no redness but has exquisite tenderness on plantar surface PLAn: prednisone trial > Htn--w/ mild renal insuff, BP Okay w/o meds. > anemia--pre-op; mild & stable. > High TSH--mild; T4 also high? effect of Amiodarone; clinically euthyroid. > At flutter--stable; on a/c & amiodarone; BB not needed. ~~~~~~~~~~~~~~~ Dr Hyde Problem List - Problems (1) Post-operative wound abscess Code(s): T81.49XA - INFECTION FOLLOWING A PROCEDURE, OTHER SURGICAL SITE, INIT (2) S/P CABG x 3 Code(s): Z95.1 - PRESENCE OF AORTOCORONARY BYPASS GRAFT (3) Hypertensive heart disease Code(s): I11.9 - HYPERTENSIVE HEART DISEASE WITHOUT HEART FAILURE Qualifiers: Heart failure presence: without heart failure Qualified Code(s): I11.9 - Hypertensive heart disease without heart failure (4) Hypercoagulable state Code(s): D68.59 - OTHER PRIMARY THROMBOPHILIA (5) Atrial flutter with controlled response Code(s): I48.92 - UNSPECIFIED ATRIAL FLUTTER (6) History of heart attack Code(s): I25.2 - OLD MYOCARDIAL INFARCTION (7) Lipidemia Code(s): E78.5 - HYPERLIPIDEMIA, UNSPECIFIED Qualifiers: Hyperlipidemia type: unspecified Qualified Code(s): E78.5 - Hyperlipidemia , unspecified (8) BPH associated with nocturia Code(s): N40.1 - BENIGN PROSTATIC HYPERPLASIA WITH LOWER URINARY TRACT SYMP; R35.1 - NOCTURIA (9) Migraine Code(s): G43.909 - MIGRAINE, UNSP, NOT INTRACTABLE, WITHOUT STATUS MIGRAINOSUS Qualifiers: Migraine type: unspecified Intractability: not intractable (10) Long-term (current) use of anticoagulants, INR goal 2.0-3.0 Code(s): Z79.01 - FPC (CURRENT) USE OF ANTICOAGULANTS
[2018-08-12] MEDS: ROSUVASTATIN CA 5 MG TABLET (FP) PO SCH (21:24)
[2018-08-13] MEDS ORDERED: DEXTROSE 5%-WATER - 50 ML IVPB ONE ×3 (01:32→16:36)
[2018-08-13] MEDS ORDERED: PIPERACILLIN/TAZOBACTAM 3.375 GM VIAL IVPB ONE ×3 (01:32→16:36)
[2018-08-13] MEDS: PIPERACILLIN/TAZOB 3.375 GM 3.375 GM in DEXTROSE 5%-WATER - 50 ML IVPB SCH ×3 (02:26→17:03)
[2018-08-13 07:16] LABS: HEMATOCRIT 32.9 % (35.4-49); HEMOGLOBIN 10.9 GM/dL (11.7-16.9); MCH 29.6 pg (25.7-33.7); MCHC 33.2 g/dl (32.0-35.9); MEAN CELL VOLUME 89.3 fl (80-96); MEAN PLT VOLUME 8.2 fl (7.5-11.1); PLATELET COUNT 442 K/MM3 (134-434); RBC 3.69 M/mm3 (4.00-5.60); WHITE BLOOD COUNT 10.5 K/mm3 (4.0-10.0)
[2018-08-13 07:35] LABS: ALBUMIN 2.8 g/dl (3.4-5.0); BILIRUBIN,TOTAL 0.5 mg/dL (0.2-1); BLOOD UREA NITROGEN 18.7 mg/dL (7-18); CALCIUM 8.8 mg/dL (8.5-10.1); CREATININE 1.2 mg/dL (0.55-1.3); POTASSIUM 4.2 mmol/L (3.5-5.1); TOT PROT 6.4 g/dl (6.4-8.2)
[2018-08-13] MEDS: TAMSULOSIN HCL 0.4 MG CAP PO SCH ×2 (08:56→21:55)
[2018-08-13] MEDS: PANTOPRAZOLE 40 MG TABLET (FP) PO SCH (09:04)
[2018-08-13] MEDS: AMIODARONE HCL 200 MG TABLET (FP) PO SCH (09:05)
[2018-08-13] MEDS: predniSONE 20 MG TABLET (UD) PO SCH ×2 (09:06→21:55)
[2018-08-13] MEDS: DABIGATRAN ETEXILATE MESYLATE 150 MG CAPSULE PO SCH ×2 (09:24→22:03)
[2018-08-13 14:50] VITALS: BMI 26.3
--- NOTE | 2018-08-13 17:37 | PN ---
Progress Note (short form) - Note Progress Note: Current Medications Acetaminophen (Tylenol -) 650 mg PO Q8H PRN PRN Reason: FEVER Last Admin: 08/12/18 21:24 Dose: 650 mg Amiodarone HCl (Cordarone -) 200 mg PO DAILY [facility] Last Admin: 08/13/18 09:05 Dose: 200 mg Dabigatran (Pradaxa -) 150 mg PO BID [facility] Last Admin: 08/13/18 09:24 Dose: 150 mg Diphenhydramine HCl (Benadryl -) 25 mg PO Q4H PRN PRN Reason: ALLERGIES Last Admin: 08/10/18 20:38 Dose: 25 mg Docusate Sodium (Colace -) 100 mg PO Q8H PRN PRN Reason: CONSTIPATION Last Admin: 08/11/18 21:33 Dose: 100 mg Finasteride (Proscar -) 5 mg PO HS [facility] Piperacillin Sod/Tazobactam (Sod 3.375 gm/ Dextrose) 50 mls @ 100 mls/hr IVPB Q8H-IV [facility]; Protocol Last Admin: 08/13/18 17:03 Dose: 100 mls/hr Ondansetron HCl (Zofran Injection) 4 mg IVPUSH Q6H PRN PRN Reason: NAUSEA AND/OR VOMITING Pantoprazole Sodium (Protonix -) 40 mg PO DAILY [facility] Last Admin: 08/13/18 09:04 Dose: 40 mg Prednisone (Deltasone -) 40 mg PO BID [facility] Stop: 08/14/18 06:00 Last Admin: 08/13/18 09:06 Dose: 40 mg Prednisone (Deltasone -) 20 mg PO BID [facility] Rosuvastatin Calcium (Crestor -) 5 mg PO HS [facility] Last Admin: 08/12/18 21:24 Dose: 5 mg Tamsulosin HCl (Flomax -) 0.4 mg PO 0830,2200 [facility] Last Admin: 08/13/18 08:56 Dose: 0.4 mg Laboratory Results - last 24 hr 08/13/18 08/13/18 06:25 06:25 WBC 10.5 H RBC 3.69 L Hgb 10.9 L Hct 32.9 L MCV 89.3 MCH 29.6 MCHC 33.2 RDW 15.0 Plt Count 442 H MPV 8.2 Sodium 140 Potassium 4.2 Chloride 108 H Carbon Dioxide 25 Anion Gap 7 L BUN 18.7 H Creatinine 1.2 Est GFR (CKD-EPI)AfAm 65.33 Est GFR (CKD-EPI)NonAf 56.37 Random Glucose 108 H Calcium 8.8 Total Bilirubin 0.5 AST 9 L ALT 13 Alkaline Phosphatase 56 Total Protein 6.4 Albumin 2.8 L Vital Signs Temperature 97.4 F L 08/13/18 14:00 Pulse Rate 89 08/13/18 14:00 Respiratory Rate 20 08/13/18 14:00 Blood Pressure 103/66 08/13/18 14:00 O2 Sat by Pulse Oximetry (%) 95 08/13/18 09:00 CC: has less discomfort overall, and able to walk ```````````` heart--irreg lungs--clear ext--dressing on operative site; surrounding skin dusky; some cord like induration of the LLE calf area neuro--alert; coherent `````````````````````````` summ > abscess--s/p I&D by dr Camara; cultures resulted as negative but clinically infected; taken off Vanco by ID, con zosyn and wound care. > Lt foot pain--cause unclear (no trauma) migratory pain; urate is WNL; trace edema, now with far less discomfort since initiating oral Prednisone yesterday. Has received 3 doses in total. PLAN: lower to 20mg BID. > Htn--w/ mild renal insuff, BP Okay w/o meds. > anemia--stable. > High TSH--mild; T4 also high? effect of Amiodarone; clinically euthyroid. > At flutter--stable; on a/c & amiodarone; BB not needed. > prostatism--on Flomax and Proscar > Hypercoag state--longstanding; on chronic a/c ~~~~~~~~~~~~~~~ Dr Hyde Problem List - Problems (1) Post-operative wound abscess Code(s): T81.49XA - INFECTION FOLLOWING A PROCEDURE, OTHER SURGICAL SITE, INIT (2) S/P CABG x 3 Code(s): Z95.1 - PRESENCE OF AORTOCORONARY BYPASS GRAFT (3) Hypertensive heart disease Code(s): I11.9 - HYPERTENSIVE HEART DISEASE WITHOUT HEART FAILURE Qualifiers: Heart failure presence: without heart failure Qualified Code(s): I11.9 - Hypertensive heart disease without heart failure (4) Hypercoagulable state Code(s): D68.59 - OTHER PRIMARY THROMBOPHILIA (5) Atrial flutter with controlled response Code(s): I48.92 - UNSPECIFIED ATRIAL FLUTTER (6) History of heart attack Code(s): I25.2 - OLD MYOCARDIAL INFARCTION (7) Lipidemia Code(s): E78.5 - HYPERLIPIDEMIA, UNSPECIFIED Qualifiers: Hyperlipidemia type: unspecified Qualified Code(s): E78.5 - Hyperlipidemia , unspecified (8) BPH associated with nocturia Code(s): N40.1 - BENIGN PROSTATIC HYPERPLASIA WITH LOWER URINARY TRACT SYMP; R35.1 - NOCTURIA (9) Migraine Code(s): G43.909 - MIGRAINE, UNSP, NOT INTRACTABLE, WITHOUT STATUS MIGRAINOSUS Qualifiers: Migraine type: unspecified Intractability: not intractable (10) Long-term (current) use of anticoagulants, INR goal 2.0-3.0 Code(s): Z79.01 - LONGTERM (CURRENT) USE OF ANTICOAGULANTS
[2018-08-13] MEDS: ROSUVASTATIN CA 5 MG TABLET (FP) PO SCH (21:55)
[2018-08-13] MEDS: FINASTERIDE 5 MG TABLET (FP) PO SCH (21:55)
[2018-08-13] MEDS: ACETAMINOPHEN 325 MG TABLET (FP) PO PRN (21:56)
[2018-08-14] MEDS ORDERED: PIPERACILLIN/TAZOBACTAM 3.375 GM VIAL IVPB ONE ×3 (00:50→17:38)
[2018-08-14] MEDS ORDERED: DEXTROSE 5%-WATER - 50 ML IVPB ONE ×3 (00:50→17:38)
[2018-08-14] MEDS: PIPERACILLIN/TAZOB 3.375 GM 3.375 GM in DEXTROSE 5%-WATER - 50 ML IVPB SCH ×3 (01:48→17:50)
[2018-08-14 07:57] LABS: BLOOD UREA NITROGEN 22.3 mg/dL (7-18); CALCIUM 9.2 mg/dL (8.5-10.1); CREATININE 1.2 mg/dL (0.55-1.3); POTASSIUM 4.3 mmol/L (3.5-5.1)
[2018-08-14] MEDS: ACETAMINOPHEN 325 MG TABLET (FP) PO PRN ×2 (08:38→22:34)
[2018-08-14] MEDS: TAMSULOSIN HCL 0.4 MG CAP PO SCH ×2 (08:38→22:28)
[2018-08-14] MEDS: AMIODARONE HCL 200 MG TABLET (FP) PO SCH (10:02)
[2018-08-14] MEDS: predniSONE 20 MG TABLET (UD) PO SCH ×2 (10:02→22:28)
[2018-08-14] MEDS: PANTOPRAZOLE 40 MG TABLET (FP) PO SCH (10:02)
[2018-08-14] MEDS ORDERED: PT OWN MED DRAWER 7, Y5N ONE (10:05)
[2018-08-14] MEDS: DABIGATRAN ETEXILATE MESYLATE 150 MG CAPSULE PO SCH ×2 (10:08→22:26)
--- NOTE | 2018-08-14 14:10 | PN ---
Progress Note (short form) - Note Progress Note: Current Medications Acetaminophen (Tylenol -) 650 mg PO Q8H PRN PRN Reason: FEVER Last Admin: 08/14/18 08:38 Dose: 650 mg Amiodarone HCl (Cordarone -) 200 mg PO DAILY [facility] Last Admin: 08/14/18 10:02 Dose: 200 mg Dabigatran (Pradaxa -) 150 mg PO BID [facility] Last Admin: 08/14/18 10:08 Dose: 150 mg Diphenhydramine HCl (Benadryl -) 25 mg PO Q4H PRN PRN Reason: ALLERGIES Last Admin: 08/10/18 20:38 Dose: 25 mg Docusate Sodium (Colace -) 100 mg PO Q8H PRN PRN Reason: CONSTIPATION Last Admin: 08/11/18 21:33 Dose: 100 mg Finasteride (Proscar -) 5 mg PO HS [facility] Last Admin: 08/13/18 21:55 Dose: 5 mg Piperacillin Sod/Tazobactam (Sod 3.375 gm/ Dextrose) 50 mls @ 100 mls/hr IVPB Q8H-IV [facility]; Protocol Last Admin: 08/14/18 10:02 Dose: 100 mls/hr Ondansetron HCl (Zofran Injection) 4 mg IVPUSH Q6H PRN PRN Reason: NAUSEA AND/OR VOMITING Pantoprazole Sodium (Protonix -) 40 mg PO DAILY [facility] Last Admin: 08/14/18 10:02 Dose: 40 mg Prednisone (Deltasone -) 20 mg PO BID [facility] Last Admin: 08/14/18 10:02 Dose: 20 mg Rosuvastatin Calcium (Crestor -) 5 mg PO [facility] Last Admin: 08/13/18 21:55 Dose: 5 mg Tamsulosin HCl (Flomax -) 0.4 mg PO 0830,2200 [facility] Last Admin: 08/14/18 08:38 Dose: 0.4 mg Laboratory Results - last 24 hr 08/14/18 07:00 Sodium 139 Potassium 4.3 Chloride 108 H Carbon Dioxide 23 Anion Gap 8 BUN 22.3 H Creatinine 1.2 Est GFR (CKD-EPI)AfAm 65.33 Est GFR (CKD-EPI)NonAf 56.37 Random Glucose 121 H Calcium 9.2 Vital Signs Temperature 97.4 F L 08/14/18 13:00 Pulse Rate 104 H 08/14/18 13:00 Respiratory Rate 18 08/14/18 13:00 Blood Pressure 113/63 08/14/18 13:00 O2 Sat by Pulse Oximetry (%) 95 08/13/18 21:00 CC: has less discomfort overall, and able to walk ```````````` skin--dusky & hyperemic (stasis changes) on the distal LLE heart--irreg lungs--clear ext--approx 1 cm round aperture on the anterior medial LLE; no pus, only serous drainage; some cord like induration of the LLE calf area; Lt pedal dorsalis felt neuro--alert; coherent; LLE mobility good `````````````````````````` summ > abscess--s/p I&D by dr Camara; wound w/ serous drainage only; getting wet to dry; cultures resulted as negative but clinically infected; taken off Vanco by ID, con zosyn and wound care. > Lt foot pain--cause unclear, now with far less discomfort since initiating oral Prednisone PLAN: cont 20mg BID for now. > Htn--w/ mild renal insuff, BP Okay w/o meds. > anemia--stable. > High TSH--mild; T4 also high? effect of Amiodarone; clinically euthyroid. > At flutter--stable; on a/c & amiodarone. > prostatism--on Flomax and Proscar > Hypercoag state--longstanding; on chronic a/c ~~~~~~~~~~~~~~~ Dr Hyde Problem List - Problems (1) Post-operative wound abscess Code(s): T81.49XA - INFECTION FOLLOWING A PROCEDURE, OTHER SURGICAL SITE, INIT (2) S/P CABG x 3 Code(s): Z95.1 - PRESENCE OF AORTOCORONARY BYPASS GRAFT (3) Hypertensive heart disease Code(s): I11.9 - HYPERTENSIVE HEART DISEASE WITHOUT HEART FAILURE Qualifiers: Heart failure presence: without heart failure Qualified Code(s): I11.9 - Hypertensive heart disease without heart failure (4) Hypercoagulable state Code(s): D68.59 - OTHER PRIMARY THROMBOPHILIA (5) Atrial flutter with controlled response Code(s): I48.92 - UNSPECIFIED ATRIAL FLUTTER (6) History of heart attack Code(s): I25.2 - OLD MYOCARDIAL INFARCTION (7) Lipidemia Code(s): E78.5 - HYPERLIPIDEMIA, UNSPECIFIED Qualifiers: Hyperlipidemia type: unspecified Qualified Code(s): E78.5 - Hyperlipidemia , unspecified (8) BPH associated with nocturia Code(s): N40.1 - BENIGN PROSTATIC HYPERPLASIA WITH LOWER URINARY TRACT SYMP; R35.1 - NOCTURIA (9) Migraine Code(s): G43.909 - MIGRAINE, UNSP, NOT INTRACTABLE, WITHOUT STATUS MIGRAINOSUS Qualifiers: Migraine type: unspecified Intractability: not intractable (10) Long-term (current) use of anticoagulants, INR goal 2.0-3.0 Code(s): Z79.01 - CORRECTION (CURRENT) USE OF ANTICOAGULANTS
[2018-08-14] MEDS ORDERED: INSULIN (LEVEMIR) 100 UNITS/ML UNITS SQ ONE (22:20)
[2018-08-14] MEDS: FINASTERIDE 5 MG TABLET (FP) PO SCH (22:28)
[2018-08-14] MEDS: ROSUVASTATIN CA 5 MG TABLET (FP) PO SCH (22:28)
[2018-08-15] MEDS ORDERED: DEXTROSE 5%-WATER - 50 ML IVPB ONE ×2 (01:59→09:04)
[2018-08-15] MEDS ORDERED: PIPERACILLIN/TAZOBACTAM 3.375 GM VIAL IVPB ONE ×2 (01:59→09:04)
[2018-08-15] MEDS: PIPERACILLIN/TAZOB 3.375 GM 3.375 GM in DEXTROSE 5%-WATER - 50 ML IVPB SCH ×2 (02:06→09:23)
[2018-08-15] MEDS: TAMSULOSIN HCL 0.4 MG CAP PO SCH (08:26)
[2018-08-15] MEDS ORDERED: PT OWN MED DRAWER 7, Y5N ONE (09:04)
[2018-08-15] MEDS: predniSONE 20 MG TABLET (UD) PO SCH (09:23)
[2018-08-15] MEDS: PANTOPRAZOLE 40 MG TABLET (FP) PO SCH (09:23)
[2018-08-15] MEDS: AMIODARONE HCL 200 MG TABLET (FP) PO SCH (09:23)
[2018-08-15] MEDS: DABIGATRAN ETEXILATE MESYLATE 150 MG CAPSULE PO SCH (10:12)
[2018-08-15 14:46] VITALS: BP 119/69; PULSE 71; TEMP 97.5
--- NOTE | 2018-08-15 14:49 | PN ---
Progress Note, Physician History of Present Illness: NO C/O LEG PAIN NO F/C SAT OOB AND AMBULATED TODAY - Current Medication List Current Medications: Active Medications Acetaminophen (Tylenol -) 650 mg PO Q8H PRN PRN Reason: FEVER Last Admin: 08/14/18 22:34 Dose: 650 mg Amiodarone HCl (Cordarone -) 200 mg PO DAILY [facility] Last Admin: 08/15/18 09:23 Dose: 200 mg Dabigatran (Pradaxa -) 150 mg PO BID [facility] Last Admin: 08/15/18 10:12 Dose: 150 mg Diphenhydramine HCl (Benadryl -) 25 mg PO Q4H PRN PRN Reason: ALLERGIES Last Admin: 08/10/18 20:38 Dose: 25 mg Docusate Sodium (Colace -) 100 mg PO Q8H PRN PRN Reason: CONSTIPATION Last Admin: 08/11/18 21:33 Dose: 100 mg Finasteride (Proscar -) 5 mg PO HS [facility] Last Admin: 08/14/18 22:28 Dose: 5 mg Piperacillin Sod/Tazobactam (Sod 3.375 gm/ Dextrose) 50 mls @ 100 mls/hr IVPB Q8H-IV [facility]; Protocol Last Admin: 08/15/18 09:23 Dose: 100 mls/hr Ondansetron HCl (Zofran Injection) 4 mg IVPUSH Q6H PRN PRN Reason: NAUSEA AND/OR VOMITING Pantoprazole Sodium (Protonix -) 40 mg PO DAILY [facility] Last Admin: 08/15/18 09:23 Dose: 40 mg Prednisone (Deltasone -) 20 mg PO BID [facility] Last Admin: 08/15/18 09:23 Dose: 20 mg Rosuvastatin Calcium (Crestor -) 5 mg PO HS [facility] Last Admin: 08/14/18 22:28 Dose: 5 mg Tamsulosin HCl (Flomax -) 0.4 mg PO 0830,2200 [facility] Last Admin: 08/15/18 08:26 Dose: 0.4 mg - Objective Vital Signs: Vital Signs Temperature 98.2 F 08/15/18 06:00 Pulse Rate 60 08/15/18 06:00 Respiratory Rate 20 08/15/18 09:00 Blood Pressure 123/75 08/15/18 06:00 O2 Sat by Pulse Oximetry (%) 97 08/15/18 09:00 Constitutional: Yes: No Distress Cardiovascular: Yes: Regular Rate and Rhythm, S1, S2 Respiratory: Yes: CTA Bilaterally Gastrointestinal: Yes: Normal Bowel Sounds, Soft. No: Tenderness Extremities: Yes: Other (SWELLING L LE RESOLVED; +HYPERPIGMENTATION; WOUND W/O DRAINAGE) Labs: CBC, BMP 08/13/18 06:25 08/14/18 07:00 Assessment/Plan S/P I&D L LE FLUID COLLECTION CELLULITIS L LE RESOLVED SUBSTITUTE AUGMENTIN 875MG PO BID 7D FOLLOW UP IN WOUND CARE CENTER 1W
--- NOTE | 2018-08-15 17:06 | DS ---
Physical Examination Vital Signs: Vital Signs Temperature 97.5 F L 08/15/18 14:00 Pulse Rate 71 08/15/18 14:00 Respiratory Rate 18 08/15/18 14:00 Blood Pressure 119/69 08/15/18 14:00 O2 Sat by Pulse Oximetry (%) 97 08/15/18 09:00 Constitutional: Yes: Well Nourished, No Distress, Calm Eyes: Yes: Conjunctiva Clear, EOM Intact Neck: Yes: Supple, Trachea Midline Cardiovascular: Yes: Pulse Irregular Respiratory: Yes: Regular Gastrointestinal: Yes: Normal Bowel Sounds, Soft Musculoskeletal: Yes: Joint Swelling (LLE) Edema: LLE: Trace Integumentary: Yes: Erythema (LLE) Wound/Incision: Yes: Clean/Dry (1 cm round ulcer LLE, w/ dressing) Neurological: Yes: WNL, Alert, Oriented ...Motor Strength: WNL Psychiatric: Yes: WNL Labs: CBC, BMP 08/13/18 06:25 08/14/18 07:00 Discharge Summary Reason For Visit: POSTOPERATIVE WOUND ABSCESS Current Active Problems Atrial flutter with controlled response (Acute) BPH associated with nocturia (Acute) Cellulitis (Acute) History of heart attack (Acute) Hypercoagulable state (Acute) Hypertensive heart disease (Acute) Lipidemia (Acute) Long-term (current) use of anticoagulants, INR goal 2.0-3.0 (Acute) Migraine (Acute) Post-operative wound abscess (Acute) S/P CABG x 3 (Acute) anemia Procedures: Principal: ID by Dr ga [facility] Course: 83 YO M with post OP wound infection of the LLE (post CABG at [facility]) where vessel was harvested for the bypass. He was evaluated on several occasions for pain, swelling and drainage of the LLE surg site as OP, and did not respond to oral Abs. He was then hospitalized for surg evaluation and CT of the LLE revealed the presence of a collection (as described) for which he underwent ID by vascular surgeon. The lesion was evacuated; cultures did not produce any organisms (presumably because he was medicated with Abs pre-surgery), and was then placed on IV Abs (by ID client insights consultant); he c/o pain post-op but then the discomfort receded and he was better able to walk and function. The surgical site still drained serous fluid and he recived daily dressing changes which will continue as OP as well as oral Abs as per ID. Condition: Improved - Instructions Diet, Activity, Other Instructions: Low salt; diet low in cholesterol --no strenuous activity --wound dressings daily as shown --check own Blood pressure daily --follow up with Dr ga in 1 week --make appt with your rn emergency as well Call MD if you develop pain and fever. Disposition: VNS/HOME HEALTH CARE - Home Medications Comprehensive Discharge Medication List: Ambulatory Orders Acetaminophen [Tylenol] 650 mg PO PRN PRN 07/28/18 Amiodarone HCl 200mg QD Aspirin [ASA -] 81 mg PO DAILY 07/28/18 Azelastine/Fluticasone [Dymista Nasal Mouth Of [place]] 23 gm NS PRN PRN 07/28/18 Dabigatran Etexilate Mesylate [Pradaxa -] 150 mg PO BID 07/28/18 Esomeprazole Magnesium 20 mg PO DAILY 07/28/18 Ezetimibe 10 mg PO DAILY 07/28/18 Finasteride 5 mg PO HS 07/28/18 Folic Acid 3 mg PO HS 07/28/18 Furosemide [Lasix] 20 mg PO DAILY as needed Rosuvastatin [Crestor -] 5 mg PO HS 07/28/18 Tamsulosin HCl [Flomax -] 0.4 mg PO BID 07/28/18 Amoxicillin clavulanate 875mg twice a day Prednisone 10mg twice a day for 3 days the 10mg once a day for 3 days then stop
[2018-08-15] MEDS ORDERED: AMOX TR/POT CLAV 875MG/125MG TABLETS (FP) PO SCH (17:30)
== END 2018-08-15 17:56 | disposition home health service (06) | DRG 863 ==
LOC: JER 13:53 → J5S 18:24
PROVIDERS: ADMIT Internal Medicine; ATTEND Internal Medicine
PROC: 0H9LXZX Drainage of Left Lower Leg Skin, External Approach, Diagnostic (ICD-10-PCS; principal; 2018-08-08 13:30)
DX: T81.41XA Infection following a procedure, superficial incisional surgical site, initial encounter (principal); L02.416 Cutaneous abscess of left lower limb; I48.92 Unspecified atrial flutter; D68.59 Other primary thrombophilia; L03.116 Cellulitis of left lower limb; L76.82 Other postprocedural complications of skin and subcutaneous tissue; E78.5 Hyperlipidemia, unspecified; Y83.8 Other surgical procedures as the cause of abnormal reaction of the patient, or of later complication, without mention of misadventure at the time of the procedure; Y92.018 Other place in single-family (private) house as the place of occurrence of the external cause; Z87.891 Personal history of nicotine dependence; Z95.1 Presence of aortocoronary bypass graft; I45.10 Unspecified right bundle-branch block; I25.2 Old myocardial infarction; K21.9 Gastro-esophageal reflux disease without esophagitis; M54.5 Low back pain; N40.1 Benign prostatic hyperplasia with lower urinary tract symptoms; G43.909 Migraine, unspecified, not intractable, without status migrainosus; Z79.01 Long term (current) use of anticoagulants; I11.9 Hypertensive heart disease without heart failure; I25.10 Atherosclerotic heart disease of native coronary artery without angina pectoris; Z86.718 Personal history of other venous thrombosis and embolism; D64.9 Anemia, unspecified
CPT/HCPCS: 36415; 71045-TC-FY; 73701-TC-RT; 80048; 80053; 81003; 82550; 84439; 84443; 84550; 85025; 85027; 85730; 86850; 86900; 86901; 87040; 87070; 87086; 87205; 93005; 93010; 94760; 99284-25; G0480; J1644